=== PATIENT | female | born 1985 | race Caucasian/White ===

== ENCOUNTER → 2020-12-22 12:35 | Outpatient (CLI) | payer OTHER, SELFPAY ==
[2020-12-22 15:57] LABS: Urine N gonorrhoeae NOT DETECTED
[2020-12-22 16:41] LABS: Urine Chlamydia NOT DETECTED
== END ==
PROVIDERS: Visit Provider Obstetrics & Gynecology
DX: Z34.01 Encounter for supervision of normal first pregnancy, first trimester (principal); Z11.3 Encounter for screening for infections with a predominantly sexual mode of transmission; Z3A.10 10 weeks gestation of pregnancy
CPT/HCPCS: 87491; 87591

== ENCOUNTER → 2021-01-08 10:54 | Outpatient (CLI) | payer OTHER, SELFPAY ==
[2021-01-08 11:17] LABS: Add Manual Diff / Slide Review NO; Basophils Absolute Auto 100 /uL (0-100); Eosinophils Absolute Auto 100 /uL (0-450); Eosinophils Percent Auto 1.4 % (2-4); Hematocrit 36.8 % (36-46); Hemoglobin 12.6 g/dL (12.0-16.0); Lymphocytes Absolute Auto 1100 /uL (1100-4500); Lymphocytes Percent Auto 13.8 % (25-40); Mean Corpuscular HGB Conc 34.2 % (30-36); Mean Corpuscular Hemoglobin 30.4 PG (26-34); Mean Corpuscular Volume 88.9 fL (80-100); Monocytes Absolute Auto 400 /uL (0-900); Monocytes Percent Auto 5.3 % (3-14); Neutrophils Absolute Auto 6000 /uL (1500-7000); Neutrophils Percent Auto 78.5 % (50-75); Platelet Count 249 X10^3/uL (150-400); Red Blood Cell Count 4.14 X10^6/uL (4.0-5.2); Red Cell Distribution Width 12.6 % (11.6-14.8); White Blood Cell Count 7.7 X10^3/uL (4.5-11.0)
[2021-01-08 11:27] LABS: Appearance Urine UA CLEAR; Bilirubin Urine UA NEGATIVE (NEGATIVE); Color Urine UA YELLOW; Glucose Urine UA NEGATIVE (Negative); Ketones Urine UA TRACE (NEGATIVE); Leukocyte Esterase Urine UA NEGATIVE (NEGATIVE); Nitrite Urine UA NEGATIVE (Negative); Occult Blood Urine UA NEGATIVE (Negative); Protein Urine UA NEGATIVE (Negative); Specific Gravity Urine UA 1.025 (1.000-1.035); Urobilinogen Urine UA 0.2 E.U./dL (0.2)
[2021-01-08 16:19] LABS: Hepatitis B Surface Antigen NEGATIVE s/c (NEGATIVE); Rubella Antibody IgG 19.3 IU/mL (>15)
[2021-01-08 16:37] LABS: HIV 1 & 2 Ab/Ag 4th Gen Combo NEGATIVE (NEGATIVE); Hep C Virus Ab w/Reflex Quant NEGATIVE s/c (NEGATIVE)
[2021-01-09 05:13] LABS: RPR Screen Non Reactive (Non Reactive)
[2021-01-09 05:36] LABS: Varicella IgG Antibody 813 index (Immune >165)
== END ==
PROVIDERS: Referring Provider Obstetrics & Gynecology; Visit Provider Obstetrics & Gynecology
DX: O09.521 Supervision of elderly multigravida, first trimester (principal); Z36.0 Encounter for antenatal screening for chromosomal anomalies
CPT/HCPCS: 36415; 80055; 81003; 81420; 86787; 86803; 86850; 86900; 86901; 87086; 87389

== ENCOUNTER → 2021-02-16 10:46 | Outpatient (CLI) | payer OTHER, SELFPAY ==
[2021-02-18 20:09] LABS: AFP Value 54.5 ng/mL (.); Gest Age on Col Date 18.3 weeks (.); Insulin Dep Diabetes No (.); OSBR Risk 1IN 9540 (.); Results Report (.); Test Results *Screen Negative* (.)
== END ==
PROVIDERS: Referring Provider Obstetrics & Gynecology; Visit Provider Obstetrics & Gynecology
DX: Z34.03 Encounter for supervision of normal first pregnancy, third trimester (principal); Z36.0 Encounter for antenatal screening for chromosomal anomalies; Z3A.18 18 weeks gestation of pregnancy
CPT/HCPCS: 36415; 82105

== ENCOUNTER → 2021-02-25 07:41 | Outpatient (CLI) | payer OTHER, SELFPAY ==
--- NOTE | 2021-02-25 07:42 | DI.US.S_ITS ---
PROCEDURE: US OB >= 14 WEEKS FETUS INDICATIONS: 20 week FAS OUTSIDE/PRIOR DATING DATA: Last menstrual period (LMP): Not available. LMP-based estimated date of delivery (CLAUDIA): Not available . First dating scan (date and location): 12/23/11, by Dr. Daniel . Estimated date of delivery (CLAUDIA) from first dating scan: 07/12/21 . TECHNIQUE: Real-time scanning was performed of the fetus, with image documentation and biometric measurements. Endovaginal scanning: Not needed COMPARISON: None. FINDINGS: General: A single living intrauterine gestation is present. Presentation: Variable at this time. Placenta: Placental position is posterior , without previa. Amniotic fluid index: 12.8 cm, normal range is 5-24 cm. heart rate: 145 beats per minute. Maternal cervical canal: 3.8 cm long. Normal lower limit is 2.5 cm. biometrics: Biparietal diameter: 4.7 cm, 20 weeks 1 day Head circumference: 17.4 cm, 19 weeks 6 days Abdominal circumference: 15.2 cm, 20 weeks 3 days Femur length: 3.1 cm, 19 weeks 5 days Estimated gestational age from initial scan: 20 weeks 3 days Composite gestational age from present scan: 20 weeks 0 days Estimated weight and percentile: 330 g, 26 percentile Measurement variability for biometric dating: +/- 7 days from 14 weeks to 15 weeks 6 days gestation, +/- 10 days from 16 weeks to 21 weeks 6 days gestation, +/- 2 weeks from 22 weeks to 27 weeks 6 days gestation, +/- 3 weeks for 28 weeks gestation or later. weight reference: 4500 g or EFW >90/95% is considered macrosomia or large for gestational age. EFW <10% is small for gestational age. EFW 5% or less is considered intra-uterine growth restriction. Anatomic survey: Neuro: Ventricles are non-dilated at less than 10 mm. Cisterna magna is normal at 3-11 mm. Cerebellum is normal in size and morphology. Nuchal skin fold: Normal at less than 6 mm between 14-21 weeks gestational age. Face: Nose and lips, facial profile are normal. Spine: No evidence for spina bifida. Heart: 4-chambered heart is present, with normal ventricular outflow tracts. Diaphragm: Diaphragm is intact. Stomach: Left-sided stomach is present. Kidneys: No hydronephrosis. Normal is less than 5 mm in 2nd trimester, less than 7 mm in 3rd trimester. Cord: 3-vessel cord has orthotopic insertion. Bladder: Normal in size. Extremities: All 4 extremities identified. IMPRESSION: Normal survey of anatomy, no anomaly seen. The delivery date is projected to be centered on 07/12/21. Dictated by: Kobe Esparza M.D. on 02/25/2021 at 14:53 Approved by: Kobe Esparza M.D. on 02/25/2021 at 14:56
== END ==
PROVIDERS: PCP Family Medicine; Referring Provider Obstetrics & Gynecology; Visit Provider Obstetrics & Gynecology
DX: Z34.02 Encounter for supervision of normal first pregnancy, second trimester (principal); Z3A.20 20 weeks gestation of pregnancy
CPT/HCPCS: 76811

== ENCOUNTER → 2021-04-13 08:37 | Outpatient (CLI) | payer OTHER, SELFPAY ==
[2021-04-13 10:22] LABS: Hematocrit 34.7 % (36-46); Hemoglobin 11.7 g/dL (12.0-16.0)
[2021-04-13 11:21] LABS: GTT (PREG) 1 Hour PP 50gm Dose 157 mg/dL (76-139)
== END ==
PROVIDERS: PCP Family Medicine; Referring Provider Obstetrics & Gynecology; Visit Provider Obstetrics & Gynecology
DX: Z34.02 Encounter for supervision of normal first pregnancy, second trimester (principal); Z3A.25 25 weeks gestation of pregnancy
CPT/HCPCS: 36415; 82950; 85014; 85018; 86850

== ENCOUNTER → 2021-05-04 07:50 | Outpatient (CLI) | payer OTHER, SELFPAY ==
[2021-05-04 09:25] LABS: Glucose Fasting Gestational 82 mg/dL (76-95)
== END ==
PROVIDERS: PCP Family Medicine; Referring Provider Obstetrics & Gynecology; Visit Provider Obstetrics & Gynecology
DX: O09.522 Supervision of elderly multigravida, second trimester (principal); O99.810 Abnormal glucose complicating pregnancy
CPT/HCPCS: 36415; 82951; 82952

== ENCOUNTER → 2021-06-08 09:24 | Outpatient (CLI) | payer OTHER, SELFPAY ==
--- NOTE | 2021-06-08 09:25 | DI.US.S_ITS ---
PROCEDURE: US OB LIMITED INDICATIONS: GROWTH CHECK OUTSIDE/PRIOR DATING DATA: First dating scan (date and location): 12/22/2020 Estimated date of delivery (CLAUDIA) from first dating scan: 07/12/2021 . TECHNIQUE: Real-time scanning was performed of the fetus, with image documentation and biometric measurements. Endovaginal scanning: No COMPARISON: [facility], OB >= 14 WEEKS FETUS, 02/25/2021, 8:08. FINDINGS: General: A single living intrauterine gestation is present. Presentation: Vertex. Placenta: Placental position is posterior , without previa. Amniotic fluid index: 16.6 cm, normal range is 5-24 cm. heart rate: 116 beats per minute. Maternal cervical canal: 2.9 cm long. Normal lower limit is 2.5 cm. biometrics: Biparietal diameter: 33 weeks 5 days Head circumference: 33 weeks 2 days Abdominal circumference: 33 weeks 4 days Femur length: 33 weeks 6 days Estimated gestational age from initial scan: 35 weeks 1 day Composite gestational age from present scan: 33 weeks 4 days Estimated weight and percentile: 2249 g; 13 percentile Measurement variability for biometric dating: +/- 7 days from 14 weeks to 15 weeks 6 days gestation, +/- 10 days from 16 weeks to 21 weeks 6 days gestation, +/- 2 weeks from 22 weeks to 27 weeks 6 days gestation, +/- 3 weeks for 28 weeks gestation or later. weight reference: 4500 g or EFW >90/95% is considered macrosomia or large for gestational age. EFW <10% is small for gestational age. EFW 5% or less is considered intra-uterine growth restriction. Other: Not applicable. IMPRESSION: Single living IUP redemonstrated and interval growth is lower limits of normal. Dictated by: Patricio PATRICIA Interpreted: Raquel Bob MD on 06/08/2021 at 11:52 Transcribed by: RACHEL on 06/08/2021 at 11:54 Approved by: Raquel Bob M.D. on 06/08/2021 at 15:02
== END ==
PROVIDERS: PCP Family Medicine; Referring Provider Obstetrics & Gynecology; Visit Provider Obstetrics & Gynecology
DX: O99.810 Abnormal glucose complicating pregnancy (principal); Z36.89 Encounter for other specified antenatal screening; Z3A.33 33 weeks gestation of pregnancy
CPT/HCPCS: 76815; 76817

== ENCOUNTER 2021-06-15 20:45 | Emergency (ER) | payer OTHER, SELFPAY ==
[2021-06-15] VITALS (10 sets, daily range): BP systolic 106–117; BP diastolic 61–72; PULSE 79–100; RESP 18–20; TEMP 36.6; O2SAT 98–100
[2021-06-15] MEDS: ONDANSETRON 4 MG/2 ML INJ IV (21:11)
[2021-06-15] MEDS: SODIUM CHLORIDE 0.9% 1,000 ML 1000 ML IV ×2 (21:11→22:31)
[2021-06-15 21:14] LABS: COVID19 -Nasal RAPID Negative (Negative)
[2021-06-15 21:15] LABS: Add Manual Diff / Slide Review NO; Basophils Absolute Auto 0 /uL (0-100); Basophils Percent Auto 0.5 % (0-2); Eosinophils Absolute Auto 0 /uL (0-450); Eosinophils Percent Auto 0.3 % (2-4); Hematocrit 37.2 % (36-46); Hemoglobin 12.7 g/dL (12.0-16.0); Lymphocytes Absolute Auto 600 /uL (1100-4500); Lymphocytes Percent Auto 7.7 % (25-40); Mean Corpuscular HGB Conc 34.1 % (30-36); Mean Corpuscular Hemoglobin 29.9 PG (26-34); Mean Corpuscular Volume 87.6 fL (80-100); Monocytes Absolute Auto 600 /uL (0-900); Monocytes Percent Auto 7.8 % (3-14); Neutrophils Absolute Auto 6600 /uL (1500-7000); Neutrophils Percent Auto 83.7 % (50-75); Platelet Count 222 X10^3/uL (150-400); Red Blood Cell Count 4.25 X10^6/uL (4.0-5.2); Red Cell Distribution Width 12.9 % (11.6-14.8); White Blood Cell Count 7.8 X10^3/uL (4.5-11.0)
[2021-06-15 21:24] LABS: Alanine Aminotransferase 24 IU/L (<35); Albumin 3.9 g/dL (3.5-5.0); Albumin Globulin Ratio 1.3 (1.0-2.8); Alkaline Phosphatase 133 U/L (38-126); Aspartate Aminotransferase 34 IU/L (14-36); BUN Creatinine Ratio 12.1 (6-22); Bilirubin Total 0.5 mg/dL (0.2-1.3); Blood Urea Nitrogen 8 mg/dL (7-17); Calcium 9.4 mg/dL (8.4-10.2); Carbon Dioxide 22 mmol/L (22-32); Chloride 101 mmol/L (98-107); Creatine Kinase 34 U/L (30-135); Estimated Glomerular Filt Rate > 60.0 mL/min (>60); Glucose 101 mg/dL (70-100); HEMOLYSIS < 15 (0-50); Lipase 363 U/L (23-300); Potassium 3.6 mmol/L (3.4-5.1); Sodium 132 mmol/L (137-145); Total Protein 6.9 g/dL (6.3-8.2)
[2021-06-15 21:35] LABS: Troponin I < 0.012 ng/mL (0.01-0.034)
--- NOTE | 2021-06-15 22:15 | ED.CHESTPAIN ---
HPI - Chest Pain General Chief Complaint: Chest Pain Stated Complaint: CHEST PAIN SOB 38WKS Time Seen by Provider: 06/15/21 22:15 Source: patient Mode of arrival: Ambulatory Limitations: no limitations History of Present Illness HPI narrative: 35-year-old woman presents with severe abdominal pain with a squeezing tightness in her chest at 35 weeks gestational age. Baby is active there is no contractions and no vaginal discharge. She denies any fevers. Symptoms of beginning worse over the past 3 days and at this point are unrelenting. She does describe quite a bit of nausea and vomiting with no blood. She has been unable to keep food or medications down. Related Data Home Medications Medication Instructions Recorded Confirmed prenat.vits,vijay,arr-nkfp-wxeaf 1 tab PO DAILY 12/17/20 04/14/21 Previous Rx's Medication Instructions Recorded ondansetron 4 mg disintegrating 4 mg PO .PRN #20 tab 01/19/21 tablet Double Electric breast Pump and #1 ea 04/24/21 Supplies lancets #120 ea 05/12/21 blood sugar diagnostic (Blood #120 ea 05/14/21 Glucose Test) blood-glucose meter (Blood Glucose #1 ea 05/14/21 Monitoring) omeprazole magnesium 20 mg 20 mg PO DAILY #30 cap 06/16/21 capsule,delayed release ondansetron 4 mg disintegrating 4 mg PO Q6H PRN #20 tab 06/16/21 tablet oxycodone-acetaminophen 5 mg-325 1 tab PO Q6H PRN #10 tab 06/16/21 mg tablet Allergies Allergy/AdvReac Type Severity Reaction Status Date / Time codeine Allergy Intermediate Unknown : Verified 12/17/20 14:19 patient to follow up with her mother Review of Systems Review of Systems Narrative: Remainder of complete review of systems is otherwise unremarkable except for that included in the HPI. Patient History Medical History Abnormal Pap smear of cervix (~2013) AMA (advanced maternal age) primigravida 35+ Anxiety and depression (~2003) Laceration of skin of chin Migraine (~2008) Surgical History [place] teeth extracted (~2000) Family History Mother Cancer Breast cancer Ovarian cyst Father Hyperlipidemia Skin cancer Hypertension Grandmother Old age Grandfather Cancer Heart abnormality Grandmother Natural with unknown cause Grandfather Stroke Cancer Family/Other Acute alcoholic intoxication Family history of drug addiction Brother No problems noted. Social History marital status: household members: spouse lives independently: Yes pets and animals: No education level: college occupational status: employed current occupational exposures/hazards: No special balbir needs: No Smoking Status: Never smoker second hand exposure: No alcohol intake: former substance use type: does not use Type(s) of exercise: regular exercise, yoga and additional Smoking Status: Never smoker alcohol intake frequency: other Substance Use Type: does not use Exam Narrative Exam Narrative: General: Healthy appearing, in no acute distress. Able to give a complete and coherent history. Well-nourished well-developed HEENT: Moist mucous membranes, normal sclera with reactive pupils, Neck: No JVD, supple Respiratory: Lungs are clear to auscultation, no wheezing no rales no rhonchi. Full and symmetrical air movement Cardiac: Regular rate and rhythm no murmurs no bruits Abdomen: Gravid, tender in the right upper quadrant no rebound no guarding no flank pain. Neurologic: Grossly neurologically intact with no obvious asymmetries or abnormalities Extremities: No trauma, well perfused Psych: Cooperative, appropriate insight and affect Initial Vital Signs Initial Vital Signs: Vital Signs Temperature 97.8 F 06/15/21 20:47 Pulse Rate 100 H 06/15/21 20:47 Respiratory Rate 20 06/15/21 20:47 Pulse Oximetry 99 06/15/21 20:47 Course Orders Ordered: Discontinued Medications Al Hydrox/Mg Hydrox/Simethicone 20 ml/ Lidocaine HCl 15 ml 0 ml PO NOW ONE Stop: 06/15/21 22:24 Last Admin: 06/15/21 22:31 Dose: 35 ml Documented by: ATAYLOR Hydromorphone HCl (Hydromorphone 0.5 Mg Inj) 0.5 mg IV Q15MIN PRN PRN Reason: Pain, Last Admin: 06/15/21 23:38 Dose: 0.5 mg Documented by: ATAYLOR Sodium Chloride (Normal Saline 0.9%) 1,000 mls @ 1,000 mls/hr IV BOLUS ONE Stop: 06/15/21 21:54 Last Infusion: 06/15/21 22:25 Dose: 0 mls/hr Documented by: Admin: 06/15/21 21:11 Dose: 1,000 mls/hr Documented by: LUIS Sodium Chloride (Normal Saline 0.9%) 1,000 mls @ 1,000 mls/hr IV BOLUS ONE Stop: 06/15/21 23:22 Last Infusion: 06/16/21 00:42 Dose: 0 mls/hr Documented by: Admin: 06/15/21 22:31 Dose: 1,000 mls/hr Documented by: LUIS Ondansetron HCl (Ondansetron 4 Mg/2 Ml Inj) 4 mg IV NOW ONE Stop: 06/15/21 20:56 Last Admin: 06/15/21 21:11 Dose: 4 mg Documented by: LUIS Pantoprazole Sodium (Pantoprazole 40 Mg Vial) 40 mg IV NOW ONE Stop: 06/15/21 22:24 Last Admin: 06/15/21 22:31 Dose: 40 mg Documented by: LUIS Vital Signs Vital signs: Vital Signs - 8 hr 06/15/21 20:47 06/15/21 21:04 06/15/21 21:19 Temperature 97.8 F Pulse Rate 100 H 88 84 Respiratory Rate 20 Blood Pressure 116/72 Pulse Oximetry 99 98 99 06/15/21 21:30 06/15/21 22:00 06/15/21 22:11 Temperature Pulse Rate 85 89 79 Respiratory Rate 18 Blood Pressure 117/71 Pulse Oximetry 99 100 100 06/15/21 22:31 Temperature Pulse Rate 80 Respiratory Rate Blood Pressure Pulse Oximetry 99 MDM - Chest Pain Lab Data Result diagrams: 06/15/21 21:05 06/15/21 21:05 Labs: Lab Results 06/15/21 06/15/21 06/15/21 Range/Units 20:32 21:05 21:05 WBC 7.8 (4.5-11.0) X10^3/uL RBC 4.25 (4.0-5.2) X10^6/uL Hgb 12.7 (12.0-16.0) g/dL Hct 37.2 (36-46) % MCV 87.6 (80-100) fL MCH 29.9 (26-34) PG MCHC 34.1 (30-36) % RDW 12.9 (11.6-14.8) % Plt Count 222 (150-400) X10^3/uL Neut % (Auto) 83.7 H (50-75) % Lymph % (Auto) 7.7 L (25-40) % [place] % (Auto) 7.8 (3-14) % Eos % (Auto) 0.3 L (2-4) % Baso % (Auto) 0.5 (0-2) % Neut # (Auto) 6600 (2274-4368) /uL Lymph # (Auto) 600 L (1937-6948) /uL [place] # (Auto) 600 (0-900) /uL Eos # (Auto) 0 (0-450) /uL Baso # (Auto) 0 (0-100) /uL D-Dimer (<230) ng/mL Sodium 132 L (137-145) mmol/L Potassium 3.6 (3.4-5.1) mmol/L Chloride 101 (98-107) mmol/L Carbon Dioxide 22 (22-32) mmol/L BUN 8 (7-17) mg/dL Creatinine 0.66 (0.52-1.04) mg/dL Estimated GFR > 60.0 (>60) mL/min BUN/Creatinine Ratio 12.1 (6-22) Glucose 101 H (70-100) mg/dL Calcium 9.4 (8.4-10.2) mg/dL Total Bilirubin 0.5 (0.2-1.3) mg/dL AST 34 (14-36) IU/L ALT 24 (<35) IU/L Alkaline Phosphatase 133 H (38-126) U/L Total Creatine Kinase 34 (30-135) U/L CK-MB (CK-2) TNP CK-MB (CK-2) Rel Index TNP Troponin I < 0.012 (0.01-0.034) ng/mL Total Protein 6.9 (6.3-8.2) g/dL Albumin 3.9 (3.5-5.0) g/dL Globulin 3.0 (1.7-4.1) g/dL Albumin/Globulin Ratio 1.3 (1.0-2.8) Lipase 363 H (23-300) U/L Urine RBC (0-5/HPF) Urine WBC (0-5/HPF) Ur Squamous Epith Cells (0-5/HPF) Urine Bacteria (None) Ur Culture Indicated? SARS-CoV-2 (PCR) Negative (Negative) 06/15/21 06/15/21 Range/Units 22:39 23:47 WBC (4.5-11.0) X10^3/uL RBC (4.0-5.2) X10^6/uL Hgb (12.0-16.0) g/dL Hct (36-46) % MCV (80-100) fL MCH (26-34) PG MCHC (30-36) % RDW (11.6-14.8) % Plt Count (150-400) X10^3/uL Neut % (Auto) (50-75) % Lymph % (Auto) (25-40) % [place] % (Auto) (3-14) % Eos % (Auto) (2-4) % Baso % (Auto) (0-2) % Neut # (Auto) (6005-7884) /uL Lymph # (Auto) (7284-2439) /uL [place]ricks # (Auto) (0-900) /uL Eos # (Auto) (0-450) /uL Baso # (Auto) (0-100) /uL D-Dimer 734 H (<230) ng/mL Sodium (137-145) mmol/L Potassium (3.4-5.1) mmol/L Chloride (98-107) mmol/L Carbon Dioxide (22-32) mmol/L BUN (7-17) mg/dL Creatinine (0.52-1.04) mg/dL Estimated GFR (>60) mL/min BUN/Creatinine Ratio (6-22) Glucose (70-100) mg/dL Calcium (8.4-10.2) mg/dL Total Bilirubin (0.2-1.3) mg/dL AST (14-36) IU/L ALT (<35) IU/L Alkaline Phosphatase (38-126) U/L Total Creatine Kinase (30-135) U/L CK-MB (CK-2) CK-MB (CK-2) Rel Index Troponin I (0.01-0.034) ng/mL Total Protein (6.3-8.2) g/dL Albumin (3.5-5.0) g/dL Globulin (1.7-4.1) g/dL Albumin/Globulin Ratio (1.0-2.8) Lipase (23-300) U/L Urine RBC None seen (0-5/HPF) Urine WBC 0-1/hpf (0-5/HPF) Ur Squamous Epith Cells 1-5 /hpf (0-5/HPF) Urine Bacteria Many (>30) H (None) Ur Culture Indicated? Specimen cultured SARS-CoV-2 (PCR) (Negative) Urine Dip Bedside Urine Glucose Negative Bedside Urine Bilirubin + 1 Bedside Urine Ketone +++ 80 Urine Specific [place] 1.030 Bedside Urine Occult Blood - Negative Bedside Urine pH 6.0 Bedside Urine Protein + 30 Bedside Urine Urobilinogen - Negative Bedside Urine Nitrite - Negative Bedside Urine Leukocytes - Negative Esterase MDM Narrative Medical decision making narrative: 35-year-old woman presents with severe abdominal pain with a squeezing tightness in her chest at 35 weeks gestational age. Baby is active there is no contractions and no vaginal discharge. She denies any fevers. Symptoms of beginning worse over the past 3 days and at this point are unrelenting. She does describe quite a bit of nausea and vomiting with no blood. She has been unable to keep food or medications down. Elevated lipase which may be physiologically associated with her . Similarly alkaline phosphatase. D-dimer is within normal limits for 3rd trimester . No evidence of significant infection. Ultrasound does not indicate acute cholecystitis or cholelithiasis. She did feel slightly better with a GI cocktail and half a mg of Dilaudid got her pain to a 2-3 level. She does have Zofran at home however was concerned that was causing constipation so has been using it very sparingly. In the emergency department she received 2 L of fluid, IV Zofran, Protonix, Dilaudid. On re-examination she is feeling significantly better. She will be discharged home with appropriate prescription for omeprazole, refill of her Zofran, instructions to use Tums as needed and try to stick to a liquid/brat diet for the next day or so. Her next OB appointment is in 48 hours. She is safe for home discharge Discharge Plan Departure Patient Disposition: Home Clinical Impression: Qualifiers: Weeks of gestation: 35 weeks Qualified Code(s): Z3A.35 - 35 weeks gestation of Chest pain Qualifiers: Chest pain type: unspecified Qualified Code(s): R07.9 - Chest pain, unspecified Acid reflux Qualifiers: Esophagitis presence: without esophagitis Qualified Code(s): K21.9 - Gastro-esophageal reflux disease without esophagitis Instructions: DI for Pancreatitis, DI for Gastroesophageal Reflux Disease (GERD) Activity Restrictions/Additional Instructions: Thank you for coming in today I suspect that the majority of the pain that your having is from heartburn and irritation to the stomach and esophagus lining. I am going to have you take omeprazole 20 mg daily, this is safe in . You can also use Tums as much as you need (Tums can sometimes cause constipation if you are using a lot of them) For nausea it is okay to use the Zofran and preventing yourself from vomiting to make the heartburn worse does make sense. Make sure that you are keeping yourself as hydrated as possible to avoid constipation. Adding a stool softener may help as well The ultrasound that we did in the emergency room did not show gallbladder problems or gallstones. The lab work did suggest a slight elevation to your pancreatic enzymes however this could be due to . If you find that the pain continues to worsen, we can certainly recheck this. Treatment for it is pain control, hydration and avoiding food for a couple of days while the body heal itself. For severe pain you can use occasional Percocet. This is a narcotic and can be addicting. It also, will cause constipation All prescriptions have been electronically transmitted to [facility] in [place] for you. I hope that you are feeling better and the rest of your is uneventful. Prescriptions: New ondansetron 4 mg tablet,disintegrating 4 mg PO Q6H PRN (Reason: nausea and vomiting) Qty: 20 RF: 0 oxycodone-acetaminophen 5-325 mg tablet 1 tab PO Q6H PRN (Reason: pain) Qty: 10 RF: 0 omeprazole magnesium 20 mg capsule,delayed release(DR/EC) 20 mg PO DAILY Qty: 30 RF: 0 No Action (DME) Double Electric breast Pump and Supplies See Rx Instructions .ROUTE .MEDSUPPLY Qty: 1 RF: 0 (DME) blood-glucose meter [Blood Glucose Monitoring] Kit See Rx Instructions .ROUTE .MEDSUPPLY Qty: 1 RF: 0 (DME) Blood Glucose Test Strip See Rx Instructions .ROUTE .MEDSUPPLY Qty: 120 RF: 3 prenat.vits,vijay,exc-ente-fgzcv Tablet 1 tab PO DAILY RF: 0 ondansetron 4 mg tablet,disintegrating 4 mg PO .PRN Qty: 20 RF: 2 (DME) lancets Misc See Rx Instructions .ROUTE .MEDSUPPLY Qty: 120 RF: 3 Referrals: Kavita Aguilar MD [Primary Care Provider] -
--- NOTE | 2021-06-15 22:26 | DI.US.S_ITS ---
PROCEDURE: US ABDOMEN LIMITED INDICATIONS: RUQ pain. ? gallstones. 35wk TECHNIQUE: Real-time focused scanning was performed of the abdomen, with image documentation. COMPARISON: None. FINDINGS: Liver is normal in size. Multiple small hyperechoic lesions are identified in the liver. Largest cyst in the anterior-medial right hepatic lobe measuring 0.8 x 0.8 x 0.8 centimeters. Gallbladder is sonographically normal. No gallstones. No gallbladder wall thickening. No pericholecystic fluid. No sonographic Lerma sign. Biliary tree is nondilated. Common bile duct measures 3.3 millimeters. Head and body pancreas are sonographically normal. Tail not visualized due to bowel gas and cannot be evaluated. Single intrauterine identified with heart rate of 128 beats per minute. IMPRESSION: 1. Multiple subcentimeter hyperechoic lesions in the liver which may represent hemangiomas. 2. No sonographic evidence of cholelithiasis or cholecystitis. 3. No sonographic evidence of biliary obstruction. Dictated by: Nayla Honeycutt MD, PhD on 06/16/2021 at 7:45 Approved by: Nayla Honeycutt MD, PhD on 06/16/2021 at 7:47
[2021-06-15] MEDS: MAG HYDROX/ALUMINUM/SIMETH SUS 20 ML, LIDOCAINE VISCOUS 2% 15 ML PO (22:31)
[2021-06-15] MEDS: PANTOPRAZOLE 40 MG VIAL IV (22:31)
[2021-06-15 23:06] LABS: D Dimer 734 ng/mL (<230)
[2021-06-15] MEDS: HYDROMORPHONE 0.5 MG INJ IV (23:38)
[2021-06-16] VITALS: BP 96/60; PULSE 84; O2SAT 96
[2021-06-16 00:30] VITALS: BP 93/56; PULSE 87; O2SAT 93
[2021-06-16 01:00] VITALS: PULSE 87; O2SAT 95
[2021-06-16 01:01] VITALS: BP 95/55
[2021-06-16 01:29] LABS: RBC Urine None Seen (0-5/HPF)
[2021-06-16 01:45] LABS: Bacteria Urine Many (>30); Culture Indicated Urine Specimen Cultured; Squamous Epithelial Cell Urine 1-5 /HPF (0-5/HPF); WBC Urine 0-1/HPF (0-5/HPF)
== END 2021-06-16 01:15 | disposition home or self-care (01) ==
PROVIDERS: Emergency Provider Emergency Medicine; PCP Family Medicine
DX: O26.893 Other specified pregnancy related conditions, third trimester (principal); R07.9 Chest pain, unspecified; R11.2 Nausea with vomiting, unspecified; K21.9 Gastro-esophageal reflux disease without esophagitis; Z3A.35 35 weeks gestation of pregnancy; Z20.822 Contact with and (suspected) exposure to COVID-19
CPT/HCPCS: 36415; 76705; 80053; 81003; 81015; 82550; 83690; 84484; 85025; 85379; 87086; 87635; 93005; 96361; 96374; 96375; 99284; C9803; C9113; J1170; J2405

== ENCOUNTER → 2021-06-24 11:54 | Outpatient (CLI) | payer OTHER, SELFPAY ==
[2021-06-25 15:15] LABS: Strep Grp B PCR NEG for Grp B Strep
== END ==
PROVIDERS: PCP Family Medicine; Visit Provider Obstetrics & Gynecology
DX: Z34.03 Encounter for supervision of normal first pregnancy, third trimester (principal); Z3A.36 36 weeks gestation of pregnancy
CPT/HCPCS: 87653

== ENCOUNTER → 2021-06-24 12:46 | Outpatient (CLI) | payer OTHER, SELFPAY ==
[2021-06-24 13:34] LABS: Amylase 146 U/L (30-110); Lipase 405 U/L (23-300)
== END ==
PROVIDERS: PCP Family Medicine; Referring Provider Obstetrics & Gynecology; Visit Provider Obstetrics & Gynecology
DX: O28.8 Other abnormal findings on antenatal screening of mother (principal); R74.8 Abnormal levels of other serum enzymes; Z3A.36 36 weeks gestation of pregnancy
CPT/HCPCS: 36415; 82150; 83690; 87653

== ENCOUNTER 2021-07-06 12:29 | Inpatient (IN) | payer OTHER, SELFPAY ==
[2021-07-06] MEDS: fentaNYL 100 MCG/2 ML INJ IV (13:23)
[2021-07-06 13:36] LABS: Add Manual Diff / Slide Review NO; Basophils Absolute Auto 100 /uL (0-100); Basophils Percent Auto 0.8 % (0-2); Eosinophils Absolute Auto 100 /uL (0-450); Eosinophils Percent Auto 0.9 % (2-4); Hematocrit 37.6 % (36-46); Hemoglobin 12.6 g/dL (12.0-16.0); Lymphocytes Absolute Auto 1400 /uL (1100-4500); Lymphocytes Percent Auto 14.1 % (25-40); Mean Corpuscular HGB Conc 33.6 % (30-36); Mean Corpuscular Hemoglobin 29.2 PG (26-34); Mean Corpuscular Volume 86.9 fL (80-100); Monocytes Absolute Auto 600 /uL (0-900); Monocytes Percent Auto 6.1 % (3-14); Neutrophils Absolute Auto 8000 /uL (1500-7000); Neutrophils Percent Auto 78.1 % (50-75); Platelet Count 277 X10^3/uL (150-400); Red Blood Cell Count 4.32 X10^6/uL (4.0-5.2); White Blood Cell Count 10.2 X10^3/uL (4.5-11.0)
[2021-07-06 14:31] LABS: COVID19 - ADMIT (NP swab/PCR) Negative (Negative)
[2021-07-06] MEDS: LACTATED RINGERS 1,000 ML 100 ML IV ×3 (15:45→22:27)
--- NOTE | 2021-07-06 19:40 | PM.OBHP.1 ---
OB HPI Date/Time Date of admission: 07/06/21 Date Patient Seen: 07/06/21 Time Patient Seen: 19:40 History of Present Condition Chief complaint: : 1 Para: 0 Estimated Date of Delivery: 07/18/21 Estimated Gestational Age (weeks): 38+2 Narrative: Zakiya Galindo is a 35 year old female 1 para 0 at 38-,2/7 weeks gestation with spontaneous rupture of membranes at 10:30 a.m. with clear amniotic fluid. History of Present care: good care, initiated at week # (10), number of visits and pounds weight gain (47) Dating criteria: LMP confirmed by 1st trimester US Ultrasounds: normal 1st trimester US and normal mid trimester US Obstetrical complications: none Medical complications: none Preadmission Labs Blood type: A (-) negative -: Antibody screen: positive (Anti-D), GBS status: negative, HBsAG: negative, HIV: negative and RPR/VDLR: negative -: Chlamydia screen: not detected and Gonorrhea screen: not detected -: Rubella: immune and Varicella: immune HCT: 37.6 HCAB: negative PAP: Normal (2019) Cell-free DNA: Normal male Urine: Negative 1 hr GTT: 157 Fasting blood glucose: 82 Evaluation Evaluation Baseline heart rate: 115 Variability: Moderate (11-25) monitor accelerations: Present Contraction Frequency (minutes): 3 Uterine Contraction Intensity: Strong/Firm Status: Category l Cervical dilation (cm): 9 Cervical effacement (%): 100 station: 0 PFSH Medical History Abnormal Pap smear of cervix (~2013) AMA (advanced maternal age) primigravida 35+ Anxiety and depression (~2003) Laceration of skin of chin Migraine (~2008) Surgical History [place] teeth extracted (~2000) Family History Mother Cancer Breast cancer Ovarian cyst Father Hyperlipidemia Skin cancer Hypertension Grandmother Old age Grandfather Cancer Heart abnormality Grandmother Natural with unknown cause Grandfather Stroke Cancer Family/Other Acute alcoholic intoxication Family history of drug addiction Brother No problems noted. Social History marital status: household members: spouse lives independently: Yes pets and animals: No education level: college occupational status: employed current occupational exposures/hazards: No special balbir needs: No Smoking Status: Never smoker second hand exposure: No alcohol intake: former substance use type: does not use Type(s) of exercise: regular exercise, yoga and additional Meds Home Medications and Allergies Home Medications Medication Instructions Recorded Confirmed Type prenat.vits,vijay,vio-ecbl-kvnmw 1 tab PO DAILY 12/17/20 04/14/21 History ondansetron 4 mg disintegrating 4 mg PO .PRN #20 tab 01/19/21 04/14/21 Rx tablet Double Electric breast Pump and #1 ea 04/24/21 Rx Supplies lancets #120 ea 05/12/21 05/12/21 Rx blood sugar diagnostic (Blood #120 ea 05/14/21 Rx Glucose Test) blood-glucose meter (Blood Glucose #1 ea 05/14/21 Rx Monitoring) omeprazole magnesium 20 mg 20 mg PO DAILY #30 cap 06/16/21 Rx capsule,delayed release ondansetron 4 mg disintegrating 4 mg PO Q6H PRN #20 tab 06/16/21 Rx tablet oxycodone-acetaminophen 5 mg-325 1 tab PO Q6H PRN #10 tab 06/16/21 Rx mg tablet Allergies Allergy/AdvReac Type Severity Reaction Status Date / Time codeine Allergy Intermediate Unknown : Verified 12/17/20 14:19 patient to follow up with her mother Exam Narrative Exam Narrative: Generally: Patient comfortable with epidural in place Fundal height: 39 cm Estimated weight 7 lb Extremities: No edema, 1+ DTRs Objective Labs Result Diagrams: 07/06/21 13:27 Labs: Laboratory Results - last 24 hr 07/06/21 07/06/21 07/06/21 13:27 13:27 13:27 WBC 10.2 RBC 4.32 Hgb 12.6 Hct 37.6 MCV 86.9 MCH 29.2 MCHC 33.6 RDW 13.0 Plt Count 277 Neut % (Auto) 78.1 H Lymph % (Auto) 14.1 L [place] % (Auto) 6.1 Eos % (Auto) 0.9 L Baso % (Auto) 0.8 Neut # (Auto) 8000 H Lymph # (Auto) 1400 [place] # (Auto) 600 Eos # (Auto) 100 Baso # (Auto) 100 SARS-CoV-2 (PCR) Blood Type A Negative Antibody Screen Positive Antibody Identification Anti-D Cancelled 07/06/21 13:35 WBC RBC Hgb Hct MCV MCH MCHC RDW Plt Count Neut % (Auto) Lymph % (Auto) [place] % (Auto) Eos % (Auto) Baso % (Auto) Neut # (Auto) Lymph # (Auto) [place] # (Auto) Eos # (Auto) Baso # (Auto) SARS-CoV-2 (PCR) Negative Blood Type Antibody Screen Antibody Identification Assessment and Plan Assessment and Plan Assessment and Plan narrative: Assessment: 35-year-old 1 para 0 at 38-,2/7 weeks gestation status post spontaneous rupture of membranes at home at 10:30 a.m. this morning Progressing in active labor Comfortable with epidural Plan: Expected management to spontaneous vaginal delivery Side signed position changes every 15 minute Time Spent with Patient Total time spent with greater than 50% in coordination of care (as documented) at patient's floor/unit and/or counseling patient:: 15-24 minutes
[2021-07-06] MEDS: ONDANSETRON 4 MG/2 ML INJ IV ×2 (20:55→23:58)
--- NOTE | 2021-07-06 21:27 | PM.OBPNLAB ---
Date/Time Date Patient Seen: 07/06/21 Time Patient Seen: 21:28 Pain Control Pain control: epidural Pelvic Exam Dilation (cm): 10 Effacement (%): 100 station: 0 Amniotic membrane status: Ruptured Contractions Monitor mode: External Contraction frequency (min): 3 Contraction duration (min): 1 Contraction intensity: Strong/Firm Status status: Category ll Heart Rate Baseline: 105 Monitor Accelerations: Present Monitor Decelerations: Prolonged (x 5 min) Monitor Variability: Minimal Assessment and Plan Plan: Comments: Discussed the occiput posterior presentation and the possibility of 2 more hours of pushing. Decision made to proceed to primary low-transverse section due to intolerance of labor. The risks, benefits, and alternatives to the procedure were explained to the patient. The risks including bleeding, infection, injury to the bowel, bladder, or ureters. She understands these risks and agrees to proceed. A full par Q was held and consent form was signed.
--- NOTE | 2021-07-06 21:29 | PM.PREOP ---
Pre-operative Note COVID-19 COVID-19 status: Negative Result date/Date tested (Pos, Neg/Pending): 07/06/21 Interval Note History & Physical reviewed/Exam performed by Physician: Yes Changes to H&P: No H&P completed within 30 days and has changed as indicated here:: 07/06/21
--- NOTE | 2021-07-06 22:10 | SUR.OPER ---
Supine on Padded OR bed, head on pillow, safety belt at thigh, arms secured on padded arm boards at <90 degrees abduction. Bump under right buttock. Legs uncrossed with pillow under knees, gel pad to heels, tape over blanket to lower legs.
--- NOTE | 2021-07-06 22:23 | SUR.OPER ---
VIABLE MALE INFANT DELIVERED AT 2214. PLACENTA AND CORD BLOOD TO OB WITH RN.
[2021-07-06] MEDS: CEFAZOLIN 1 GM VIAL 2 GM IV (22:26)
--- NOTE | 2021-07-06 22:58 | P.OP_ITS ---
Operative Date/Time/Diagnoses Date of procedure: 07/06/21 Time of procedure: 22:58 Pre-op diagnosis: intolerance of labor Direct Occiput posterior Post-op diagnosis: same Procedure & Clinicians Procedure: Primary low-transverse section Same procedure as scheduled: Yes Indications: intolerance of labor Direct occiput posterior presentation Surgeon: Columba Yates Click Yes if Unassisted: Yes Anesthesia Type: Epidural (With Duramorph) Operative Notes Findings: Live male infant in the direct occiput posterior presentation Edematous uterus and cervix Normal uterus tubes and ovaries Closure Type: primary Specimen(s): cord blood and placenta Intraoperative meds administered: Duramorph, Ketorolac and Pitocin Applied: Catheter (To continuous drainage) Estimated Blood Loss (mL): 500 Blood products transfused: none Procedure in detail: After informed consent was obtained, the patient was taken to the operating room where she was placed in the dorsal supine position with a leftward tilt. She was prepped and draped in the usual sterile fashion. A timeout was performed. After epiduralanalgesia was found to be adequate, a Pfannenstiel skin incision was made 2 fingerbreadths above the pubic symphysis and carried through to the underlying layer fascia. The fascia was nicked in the midline, and the incision extended bilaterally with the Giraldo scissors. The superior aspect of the fascial incision was grasped with a [place] clamps, elevated, and the underlying rectus muscles dissected off sharply and bluntly. Attention was then turned to the inferior aspect of this incision which in a similar fashion was grasped with a [place] clamps, elevated, and the underlying rectus muscles dissected off sharply and bluntly. The rectus muscles were in the midline. The peritoneum was identified, grasped between 2 hemostats, and entered sharply with the Metzenbaum scissors. This incision was extended superiorly and inferiorly with good visualization of the bladder. The bladder blade was inserted. The vesicouterine peritoneum was identified, grasped with the pickup, and entered sharply with the Metzenbaum scissors. This incision was extended bilaterally, and the bladder flap was created digitally. The bladder blade was reinserted. The lower uterine segment was incised in a transverse fashion with the scalpel. Upon entering the amniotic sac there was a moderate amount of meconium-stained amniotic fluid. The infant's head was delivered without difficulty. The nose and mouth were suctioned with bulb suction. The remainder of the body delivered without difficulty. The baby was wrapped in a warm blanket. cord was double clamped and cut after 1 minute. The was handed off to waiting RN and RT. The placenta was delivered manually. The uterus was cleared of all clots and debris. The uterine incision was repaired with #1 chromic in a running interlocking fashion, and a second layer the same suture was used for an imbricating layer. Hemostasis was achieved. The tubes and ovaries were examined and were found to be normal. The gutters were cleared of all clots and debris. The bladder flap was reapproximated using 2-0 Vicryl in a running fashion. The parietal peritoneum was closed using 2-0 Vicryl in a running fashion. The fascia was reapproximated using 0 Vicryl in a running fashion. The subcutaneous layer was copiously irri gated with warm normal saline. 6 simple interrupted sutures of 3-0 Vicryl were placed to reapproximate the subcutaneous layer. The skin was closed with 4-0 Monocrylin a subcuticular fashion. Steri-Strips were placed. An Aquacel dressing was placed. The uterus was expressed of a small amount of old blood. Sponge, lap, and instrument counts were correct ?-2. The patient tolerated the procedure well, and was taken to PACU in stable condition. Complications: none [place] Baby 1: Infant Gender: Male Presentation: vertex Position: Occiput Posterior Placental Delivery Description: Manual Removal Cord Vessel Description: 3 Vessels and Clamped/Cut score (1 min): 9 score (5 min): 9 weight: 7 lb 5 oz Post-operative Condition: stable Disposition: PACU Aftercare: routine postop
[2021-07-06 22:59] VITALS: BP 97/64; PULSE 88; RESP 11; TEMP 37.2; O2SAT 97
[2021-07-06 23:04] VITALS: BP 98/66; PULSE 91; RESP 8; O2SAT 96
[2021-07-06 23:09] VITALS: BP 103/61; PULSE 85; RESP 9; O2SAT 97
[2021-07-06] MEDS: OXYCODONE/ACETAMINOPHEN 5/325 TABLET 1 TAB PO (23:11)
[2021-07-06 23:16] VITALS: BP 82/60; PULSE 94; RESP 14; O2SAT 98
--- NOTE | 2021-07-06 23:24 | SUR.PHASEI ---
Pain worsening, patient decided to accept IV pain med while waiting for PO to become effective. Medicated/Dr. Garcia. States that the pain is 'deep' and 'stabbing' Tolerating PO intake well
[2021-07-06 23:29] VITALS: BP 103/70; PULSE 86; RESP 10; O2SAT 99
--- NOTE | 2021-07-06 23:34 | SUR.PHASEI ---
Nausea, no emesis, queeze-ease given. She states that it is helping to relieve the nausea
[2021-07-06 23:39] VITALS: BP 104/61; PULSE 88; RESP 11; O2SAT 93
--- NOTE | 2021-07-06 23:46 | SUR.PHASEI ---
Asked if she could sleep. Denies pain - states it is just 'a little pinching, but it doesn't hurt.
[2021-07-07] VITALS: BP 117/67; PULSE 86; RESP 14; TEMP 37.3; O2SAT 97
--- NOTE | 2021-07-07 00:12 | SUR.PHASEI ---
0002 to center, spouse and baby in the room, report given, Care assumed by staff. Patient awake, oriented, tired, appreciative of care. Medicated for nausea prior to transfer - no emeisis
[2021-07-07 00:36] VITALS: BP 106/65
[2021-07-07] MEDS: OXYCODONE/ACETAMINOPHEN 5/325 TABLET 1 TAB PO ×4 (02:23→22:27)
[2021-07-07 02:51] VITALS: BP 111/61; PULSE 73; RESP 16; TEMP 36.1
[2021-07-07 03:51] VITALS: BP 105/59; PULSE 72; RESP 16; TEMP 36.7
[2021-07-07] MEDS: KETOROLAC 30 MG/ML VIAL IV ×4 (06:16→19:16)
[2021-07-07 06:56] LABS: Hematocrit 29.9 % (36-46); Hemoglobin 9.9 g/dL (12.0-16.0)
[2021-07-07] MEDS: DOCUSATE 100 MG CAPSULE 200 MG PO ×2 (09:18→21:25)
[2021-07-07] MEDS: PRENATAL VIT,CALC/IRON/FOLIC 1 TABLET 1 TAB PO (09:19)
--- NOTE | 2021-07-07 16:20 | PM.OBPN.1 ---
Subjective - OB Subjective Patient comments: no complaints, pain well controlled and flatus present [place] baby status: doing well [place] feeding status: exclusively breast feeding Narrative: Patient voiding spontaneously, has passed flatus, pain well controlled, tolerating regular diet Date Patient Seen: 07/07/21 Time Patient Seen: 16:21 Exam Vital Signs (past 8 hours): Oxygen Delivery Method Room Air Const General: cooperative and comfortable Nutritional Appearance: average body habitus Orientation: alert and oriented x3 HENMT Head: normal to inspection Eyes General: appearance normal, both eyes and all related structures Conjunctivae: conjunctivae normal Sclera: sclerae normal EOM: EOM intact bilaterally Neck Neck: normal visual inspection Resp Effort & Inspection: normal respiratory effort and able to speak in complete sentences Auscultation: clear to auscultation bilaterally Cardio Rate: regular rate Rhythm: regular rhythm Heart Sounds: S1 normal, S2 normal and no murmurs GI Inspection: normal to inspection, distended (Mild) and incision (Dressing clean, dry, and intact) Palpation: soft, no hepatosplenomegaly and mass (Fundus U-4, NT, firm) Auscultation: hypoactive bowel sounds Extrem General: No calf tenderness Psych Appearance: grossly normal Mental Status: mental status grossly normal Speech and Movement: speech and movement normal Mood: congruent mood Affect: normal affect Attitude: cooperative Thought Process: normal Thought Content: normal Judgment: judgment good Objective Labs Result Diagrams: 07/07/21 06:35 Labs: Laboratory Results - last 24 hr 07/07/21 06:35 Hgb 9.9 L Hct 29.9 L Assessment & Plan Plan day: 1 plan OB: routine postop care Comments: Anticipate discharge 07/08/2021 Time Spent With Patient Time: Total time spent is greater than 50% in coordination of care (as documented) at patient's floor/unit and/or counseling patient: Time with patient: less than 15 minutes
[2021-07-07] MEDS: ACETAMINOPHEN 325 MG TABLET 650 MG PO (17:52)
[2021-07-07] MEDS: LANOLIN OINT 7 GM 1 APPLIC TOP (21:24)
[2021-07-07] MEDS: OXYCODONE IR 5 MG TABLET PO (21:26)
[2021-07-08] MEDS: ACETAMINOPHEN 325 MG TABLET 650 MG PO ×3 (00:24→13:54)
[2021-07-08] MEDS: IBUPROFEN 600 MG TABLET PO ×3 (00:24→13:55)
[2021-07-08] MEDS: OXYCODONE IR 5 MG TABLET PO ×3 (02:15→13:56)
[2021-07-08] MEDS: DOCUSATE 100 MG CAPSULE 200 MG PO (07:49)
[2021-07-08] MEDS: PRENATAL VIT,CALC/IRON/FOLIC 1 TABLET 1 TAB PO (07:49)
--- NOTE | 2021-07-08 19:37 | PM.OBDS.1 ---
Discharge Providers Provider Date of admission: 07/06/21 12:29 Discharge Date: 07/08/21 Primary care physician: Kavita Aguilar MD Consults: 07/06/21 23:48 Consult to Financial Accounting Manager Routine Comment: Discharge provider: Jaciel Blue MD Summary Hospital Course Date Patient Seen: 07/08/21 Time Patient Seen: 12:50 Diagnoses: Intrauterine gestation, [place], term, vertex Persistent occiput posterior position intolerance of labor in the 2nd stage Hospital Course: The patient was admitted with spontaneous rupture membranes at 10:30 a.m. on the morning of 07/06/2021 and by that evening had progressed spontaneously into the 2nd stage of labor. During her pushing however she experienced a prolonged episode of bradycardia and had repetitive deep variables while the infant was determined to be in the persistent her occiput posterior position. After discussion with the patient the decision was made to proceed to primary section for indications and the patient underwent an uneventful primary delivery by low transverse cervical incision on the evening of 07/06/2021. Her post operative course has been unremarkable with prompt return of bowel and bladder function. She is tolerating regular diet, is ambulating independently, and her pain is well controlled with oral medications. She will be discharged at this time to home with medications to include Percocet 1 p.o. q.4 hours as needed pain dispense 20 with no refills, ibuprofen 600 mg p.o. q.6 hours as needed pain dispense 60 with 3 refills, and Colace 100 mg p.o. b.i.d. times 30 days. The patient has not made a decision about the method of contraception. Prior to discharge the patient was counseled regarding precautionary symptoms, limitations activity, medications, plan for follow-up. She will be scheduled for follow-up appointment in the office in 1 week for incision check and dressing removal. Peripartum Data Delivery Method: Section Episiotomy description: None complications: none 1: Gender: Male Disposition of : home Discharge Diagnosis (1) , delivered: Status: Acute (2) Occipitoposterior position, delivered, current hospitalization: Status: Acute (3) intolerance to labor, delivered, current hospitalization: Status: Acute Status at Discharge Cognitive/behavioral status at discharge: oriented and at baseline, oriented Functional status at discharge: independent ambulation Overall status at discharge: patient is progressing back to baseline Time Spent with Patient Time attestation: Total time spent providing and/or coordinating discharge services: Time spent: Less than 30 minutes Objective Labs Result Diagrams: 07/07/21 06:35 Exam Vital Signs (past 8 hours): Oxygen Delivery Method Room Air Const General: cooperative and comfortable Nutritional Appearance: average body habitus Orientation: alert and oriented x3 HENMT Head: normal to inspection Eyes General: appearance normal, both eyes and all related structures Neck Neck: normal visual inspection Resp Effort & Inspection: normal respiratory effort and able to speak in complete sentences Auscultation: clear to auscultation bilaterally Cardio Rate: regular rate Rhythm: regular rhythm Heart Sounds: S1 normal, S2 normal and no murmurs GI Inspection: normal to inspection, distended (Mild) and incision ( dressing dry and intact) Palpation: soft, no hepatosplenomegaly and tender ( mild, diffuse lower abdomen) Auscultation: hypoactive bowel sounds Extrem General: No calf tenderness Psych Appearance: grossly normal Mental Status: mental status grossly normal Speech and Movement: speech and movement normal Mood: congruent mood Affect: normal affect Attitude: cooperative Thought Process: normal Thought Content: normal Judgment: judgment good Discharge Plan Discharge Plan Patient Disposition: Home Provider Discharge Comment: See written instructions. Your follow-up appointment will be in 1 week and I look forward to seeing you then. Discharge orders & Medications Prescriptions: New oxycodone-acetaminophen [Percocet] 5-325 mg tablet 1 tab PO Q4H PRN (Reason: pain) Qty: 20 RF: 0 docusate sodium [Colace] 100 mg capsule 100 mg PO BID 30 Days Qty: 60 RF: 0 ibuprofen 600 mg tablet 600 mg PO Q6H PRN (Reason: fever or pain) Qty: 60 RF: 3 Continued (DME) Double Electric breast Pump and Supplies See Rx Instructions .ROUTE .MEDSUPPLY Qty: 1 RF: 0 (DME) blood-glucose meter [Blood Glucose Monitoring] Kit See Rx Instructions .ROUTE .MEDSUPPLY Qty: 1 RF: 0 (DME) Blood Glucose Test Strip See Rx Instructions .ROUTE .MEDSUPPLY Qty: 120 RF: 3 prenat.vits,vijay,[id number] Tablet 1 tab PO DAILY RF: 0 ondansetron 4 mg tablet,disintegrating 4 mg PO .PRN Qty: 20 RF: 2 (DME) lancets Misc See Rx Instructions .ROUTE .MEDSUPPLY Qty: 120 RF: 3 ondansetron 4 mg tablet,disintegrating 4 mg PO Q6H PRN (Reason: nausea and vomiting) Qty: 20 RF: 0 oxycodone-acetaminophen 5-325 mg tablet 1 tab PO Q6H PRN (Reason: pain) Qty: 10 RF: 0 omeprazole magnesium 20 mg capsule,delayed release(DR/EC) 20 mg PO DAILY Qty: 30 RF: 0 Follow up/Referrals: Kavita Aguilar MD [Primary Care Provider] - Jaciel Blue MD [Physician] - 1 Week (Please follow up with Dr. Blue on July 14 @ 10:00AM for an aquacel dressing removal. ) Discharge Health Status Multidrug resistant organism: No MDRO Diet/Activity/Treatments Diet: Diet as Tolerated Skin/Wound/Dressing Care Report to your healthcare provider any signs of infection, such as:: chills, fever, increased pain, unusual drainage and unusual redness Dressing: Keep dressing on until your follow-up appointment in 1 week Visit Report/Discharge Packet Instructions: DI for , DI for and Nipple Soreness, DI for Prescription Opioid Use Discharge Data Primary Care Provider: Kavita Aguilar
== END 2021-07-08 14:22 | disposition home or self-care (01) | DRG 788 ==
PROVIDERS: Obstetrics & Gynecology; Admitting Provider Obstetrics & Gynecology; PCP Family Medicine; Referring Provider Obstetrics & Gynecology; Visit Provider Obstetrics & Gynecology
PROC: 10D00Z1 Extraction of Products of Conception, Low, Open Approach (ICD-10-PCS; CPT 59514; principal; 2021-07-06 22:00)
DX: O64.0XX0 Obstructed labor due to incomplete rotation of fetal head, not applicable or unspecified (principal); O76 Abnormality in fetal heart rate and rhythm complicating labor and delivery; Z3A.38 38 weeks gestation of pregnancy; Z37.0 Single live birth
CPT/HCPCS: 01967; 01968; 36415; 59050; 59510; 59514; 85014; 85018; 85025; 86850; 86870; 86900; 86901; 87635; C9803; G0379; J0690; J1170; J1885; J2250; J2274; J2405; J2590; J3010

== ENCOUNTER → 2022-03-24 09:46 | Outpatient (CLI) | payer OTHER, SELFPAY ==
--- NOTE | 2022-03-24 09:47 | DI.US.S_ITS ---
PROCEDURE: US OB <= 14 WEEKS FETUS INDICATIONS: DATES OUTSIDE/PRIOR DATING DATA: Last menstrual period (LMP): 01/29/2022 LMP-based estimated date of delivery (CLAUDIA): 11/05/2022 First dating scan (date and location): 03/24/2022 at [facility] Estimated date of delivery (CLAUDIA) from first dating scan: 11/01/2022 TECHNIQUE: Real-time scanning was performed of the fetus and maternal pelvic organs, with image documentation. Endovaginal scanning was also performed to better visualize the fetus and maternal ovaries. COMPARISON: [facility], US, US OB <= 14 WEEKS FETUS, 12/22/2020, 12:23. FINDINGS: Embryo: Intrauterine gestational sac is seen with yolk sac and pole. The crown-rump length is 1.8 cm, compatible with an estimated gestational age of 8 weeks 2 days. Heart rate: 160 beats per minute Maternal organs: Left ovary is not seen. The right ovary is unremarkable. IMPRESSION: Single live intrauterine with estimated gestational age of 8 weeks 2 days, resulting in an ultrasound CLAUDIA of 11/01/2022. We strive to produce accurate, complete, and clear reports of imaging services. To assist us in improving patient care, this report was composed using standard report templates and voice recognition software. Therefore, it may contain abnormal punctuation, insertions and/or omissions. Occasional wrong-word or sound-alike substitutions may occur. Though we review the report and make efforts to correct it, we do recommend that the report be read carefully in proper context to recognize any text inaccuracies. Dictated by: Joseph Mcgregor M.D. on 03/24/2022 at 13:43 Approved by: Joseph Mcgregor M.D. on 03/24/2022 at 13:45
[2022-03-24 10:15] LABS: Add Manual Diff / Slide Review NO; Basophils Absolute Auto 100 /uL (0-100); Basophils Percent Auto 0.9 % (0-2); Eosinophils Absolute Auto 0 /uL (0-450); Eosinophils Percent Auto 0.4 % (2-4); Hematocrit 37.9 % (36-46); Hemoglobin 12.8 g/dL (12.0-16.0); Lymphocytes Absolute Auto 1800 /uL (1100-4500); Lymphocytes Percent Auto 22.1 % (25-40); Mean Corpuscular HGB Conc 33.8 % (30-36); Mean Corpuscular Hemoglobin 29.3 PG (26-34); Mean Corpuscular Volume 86.7 fL (80-100); Monocytes Absolute Auto 600 /uL (0-900); Monocytes Percent Auto 7.1 % (3-14); Neutrophils Absolute Auto 5500 /uL (1500-7000); Neutrophils Percent Auto 69.5 % (50-75); Platelet Count 274 X10^3/uL (150-400); Red Blood Cell Count 4.38 X10^6/uL (4.0-5.2); Red Cell Distribution Width 13.1 % (11.6-14.8); White Blood Cell Count 7.9 X10^3/uL (4.5-11.0)
[2022-03-24 10:32] LABS: Appearance Urine UA CLEAR; Bilirubin Urine UA NEGATIVE (NEGATIVE); Color Urine UA YELLOW; Glucose Urine UA TRACE g/dL (Negative); Ketones Urine UA NEGATIVE (NEGATIVE); Leukocyte Esterase Urine UA TRACE (NEGATIVE); Nitrite Urine UA NEGATIVE (Negative); Occult Blood Urine UA NEGATIVE (Negative); Protein Urine UA NEGATIVE (Negative); Specific Gravity Urine UA 1.015 (1.000-1.035); Urobilinogen Urine UA 0.2 E.U./dL (0.2)
[2022-03-24 11:27] LABS: Bacteria Urine Moderate (10-30); Mucus Urine 2+ (Negative); RBC Urine 1-5/HPF (0-5/HPF); Squamous Epithelial Cell Urine 1-5 /HPF (0-5/HPF); WBC Urine 1-5/HPF (0-5/HPF)
[2022-03-25 07:09] LABS: RPR Screen Non Reactive (Non Reactive); Varicella IgG Antibody 648 index (Immune >165)
[2022-03-25 15:47] LABS: Hepatitis B Surface Antigen NEGATIVE s/c (NEGATIVE); Rubella Antibody IgG 17.7 IU/mL (>15)
[2022-03-25 16:03] LABS: HIV 1 & 2 Ab/Ag 4th Gen Combo NEGATIVE (NEGATIVE); Hep C Virus Ab w/Reflex Quant NEGATIVE s/c (NEGATIVE)
== END ==
PROVIDERS: PCP Family Medicine; Referring Provider Obstetrics & Gynecology; Visit Provider Obstetrics & Gynecology
DX: Z34.81 Encounter for supervision of other normal pregnancy, first trimester (principal); Z3A.08 8 weeks gestation of pregnancy
CPT/HCPCS: 36415; 76801; 76817; 80055; 81003; 81015; 86787; 86803; 86850; 86900; 86901; 87086; 87389

== ENCOUNTER → 2022-04-23 12:20 | Outpatient (CLI) | payer OTHER, SELFPAY ==
[2022-04-23 12:31] LABS: Specimen Label KIT
== END ==
PROVIDERS: Obstetrics & Gynecology; PCP Family Medicine; Referring Provider Obstetrics & Gynecology; Visit Provider Obstetrics & Gynecology
DX: O09.511 Supervision of elderly primigravida, first trimester (principal)
CPT/HCPCS: 36415

== ENCOUNTER → 2022-06-15 09:44 | Outpatient (CLI) | payer OTHER, SELFPAY ==
--- NOTE | 2022-06-15 09:45 | DI.US.S_ITS ---
PROCEDURE: US OB >= 14 WEEKS FETUS INDICATIONS: ANATOMY OUTSIDE/PRIOR DATING DATA: Last menstrual period (LMP): 01/29/2022 LMP-based estimated date of delivery (CLAUDIA): 11/05/2022 First dating scan (date and location): 03/24/2022 Estimated date of delivery (CLAUDIA) from first dating scan: 11/01/2022 The calculations are made using the study generated CLAUDIA of 11/01/2022. TECHNIQUE: Real-time scanning was performed of the fetus, with image documentation and biometric measurements. Endovaginal scanning: None indicated. COMPARISON: [facility], OB >= 14 WEEKS FETUS, 02/25/2021, 8:08. FINDINGS: General: A single living intrauterine gestation is present. Presentation: Breech. Placenta: Placental position is posterior, without previa. Amniotic fluid index: 12.5 cm, normal range is 5-24 cm. Single deepest vertical pocket is 4.3 cm. heart rate: 158 beats per minute. Maternal cervical canal: 3.1 cm long. Normal lower limit is 2.5 cm. biometrics: Biparietal diameter: 4.6 cm, 20 weeks, 0 day. Head circumference: 17.7 cm, 20 weeks, 1 day. Abdominal circumference: 15.3 cm, 20 weeks, 3 days. Femur length: 3.0 cm, 19 weeks, 2 days. Clinically estimated gestational age: 20 weeks, 1 day. Composite gestational age from present scan: 20 weeks, 0 day. Estimated weight and percentile: 322 g, 34%. Anatomic survey: Neuro: Ventricles are non-dilated at less than 10 mm. Cisterna magna is normal at 3-11 mm. Cerebellum is normal in size and morphology. Nuchal skin fold: Normal at less than 6 mm between 14-21 weeks gestational age. Face: Nose and lips, facial profile are normal. Spine: No evidence for spina bifida. Heart: 4-chambered heart is present, with normal ventricular outflow tracts. Diaphragm: Diaphragm is intact. Stomach: Left-sided stomach is present. Kidneys: No hydronephrosis. Normal is less than 5 mm in 2nd trimester, less than 7 mm in 3rd trimester. Cord: 3-vessel cord has orthotopic insertion. Bladder: Normal in size. Extremities: All 4 extremities identified. IMPRESSION: 1. Single live intrauterine gestation with fetus in breech presentation. Normal amount of amniotic fluid. heart rate is 158 beats per minute. Estimated weight is at 34%. 2. Normal anatomic survey. We strive to produce accurate, complete, and clear reports of imaging services. To assist us in improving patient care, this report was composed using standard report templates and voice recognition software. Therefore, it may contain abnormal punctuation, insertions and/or omissions. Occasional wrong-word or sound-alike substitutions may occur. Though we review the report and make efforts to correct it, we do recommend that the report be read carefully in proper context to recognize any text inaccuracies. Dictated by: Toi Diamond M.D. on 06/15/2022 at 12:02 Approved by: Toi Diamond M.D. on 06/15/2022 at 12:09
[2022-06-16 20:35] LABS: AFP Value 54.5 ng/mL (.); Gest Age on Col Date 19.6 weeks (.); Insulin Dep Diabetes No (.); OSBR Risk 1IN 10000 (.); Results Report (.); Test Results *Screen Negative* (.)
== END ==
PROVIDERS: PCP Family Medicine; Referring Provider Obstetrics & Gynecology; Visit Provider Obstetrics & Gynecology
DX: Z34.82 Encounter for supervision of other normal pregnancy, second trimester (principal); Z3A.20 20 weeks gestation of pregnancy
CPT/HCPCS: 36415; 76811; 82105

== ENCOUNTER → 2022-08-18 09:44 | Outpatient (CLI) | payer OTHER, SELFPAY ==
[2022-08-18 12:03] LABS: Hematocrit 33.5 % (36-46); Hemoglobin 11.4 g/dL (12.0-16.0)
[2022-08-18 12:44] LABS: GTT (PREG) 1 Hour PP 50gm Dose 161 mg/dL (76-139)
== END ==
PROVIDERS: PCP Family Medicine; Referring Provider Obstetrics & Gynecology; Visit Provider Obstetrics & Gynecology
DX: O26.899 Other specified pregnancy related conditions, unspecified trimester (principal); Z3A.26 26 weeks gestation of pregnancy; Z67.91 Unspecified blood type, Rh negative
CPT/HCPCS: 82950; 85014; 85018

== ENCOUNTER → 2022-08-24 09:57 | Outpatient (CLI) | payer OTHER, SELFPAY ==
[2022-08-24 13:09] LABS: Glucose Fasting Gestational 68 mg/dL (76-95)
[2022-08-24 13:19] LABS: Glucose 1 Hour Gest 185 mg/dL (76-180)
[2022-08-24 13:50] LABS: Glucose Tol Interp,Gestational INTERPRETATION
[2022-08-24 15:51] LABS: Glucose 2 Hour Gest 179 mg/dL (76-155)
[2022-08-24 15:57] LABS: Glucose 3 Hour Gest 137 mg/dL (76-140)
== END ==
PROVIDERS: PCP Family Medicine; Referring Provider Obstetrics & Gynecology; Visit Provider Obstetrics & Gynecology
DX: O99.810 Abnormal glucose complicating pregnancy (principal)
CPT/HCPCS: 36415; 82951; 82952

== ENCOUNTER → 2022-09-01 09:51 | Outpatient (CLI) | payer OTHER, SELFPAY ==
--- NOTE | 2022-09-01 16:30 | DIAB.GDA ---
Addendum entered by Chelsy Ambrose 09/08/22 10:21: Zakiya sent BG results. Most FBG in goal, one elevation of 96. Otherwise, all FBG between 77-85mg/dL. Most 1 hr pc readings in goal. SOme even below 100 indicating some room for more nutrition potentially. will follow-up in one week in person. Original Note: Initial Gestational Diabetes Assessment Name: Zakiya Galindo Date: 09/01/22 Time: 10 Dx: Gestational Diabetes Provider: Mirza CLAUDIA: 09/05/23 Weeks: 30-31 Zakiya presents for initial GDM visit. Denies any previous h/o GDM or diabetes-related hx. +FH of DM with maternal grandmother. Currently takin 500mg Metformin BID. Just received correct meter for SMBG. Tends to lean toward a lower carb diet naturally. May be under MULTIPLEX OPERATOR for CHO intake during of 175g per day. Has an 18 y/o son at home. Feels she came into this with some weight from previous . Unclear on prepreg weight. Prefers not to see weight. She is having a boy! Diet Recall: 8a: coffee with 1 TBS creamer, yogurt with granola and berries OR avocado taost OR eggs with cheese and veggie 930a: carrots, tomatoes, 1/2c hummus 11a: leftovers OR chicken and cheese sandwich OR salad 2p: half of 930a snack or apple or banana 5p: handful cheerios 630p: protein bar OR low carb pasta with chx and broccoli OR protein with veggies Beverages: water 16oz x 2, coffee x 1c Anthropometrics: Ht: 61 Wt: 143# 08/18/22 OB visit Prepregnancy wt: unknown Physical Activity: Walks 2-3x with son for 20 min. Swims inconsistently when she has time. Self-Monitoring Blood Glucose: Received incorrect meter. Checked a few BG: FBG and some time after dinner 1-3 hours pc. Has new meter. Needed info on SMBG timing and goals. Date Pre Post Pre Post Pre Post notes 08/27 85 149 1hr 119 pre or post? in evening 08/28 75 99 pre or post afternoon? 08/30 81 2 hr 123 2 hr 09/01 132 Diabetes Medications: 500mg Metformin BID Pertinent Labs: OGTT: 68L, 185H, 179H, 137 Nutrition Rx: Carbohydrates: Daily: 175g Meal: 45-g lunch and dinner; 30g breakfast Snack: 15-30g fluids: 1.9-2.25L per day Nutrition Diagnosis: Altered nutrition related lab value r/t GDM dx aeb recent OGTT Inadequate CHO intake r/t low carb diet for aeb diet recall Physical inactivity r/t stage of change preparation aeb pt report Inadequate fluid intake r/t nutrition knowledge deficit aeb diet recall of 16-30oz fluids daily Intervention: This participant was very receptive. Provided appropriate educational handouts. Discussed the following topics: GDM pathophysiology and impact of hyperglycemia on mom and baby Risk for T2DM for mom and baby in the future Ways to reduce risk T2DM Plate Method, meal timing, carb counting, pairing macronutrients and spreading out CHO for better BG management Blood glucose goals (FBG: <95 and 1 hour <140 mg/dL); importance of checking 4x per day (FBG and pc) Impact of macronutrients on blood glucose Recommended servings for carbohydrates at meals and snacks Brainstormed appropriate meal plan based on her food preferences Role of physical activity and following provider guidelines for safety Goals: Measure coffee creamer 30min activity per day Pair carbs and protein Aim for 2L fluids per day Follow-up: SHANNEN KAY follow-up in one week via phone check and 2 weeks 1:1 follow-up Chelsy mAbrose RDN, ELIZA Certified Diabetes Care and Green Marketer T: [phone] F: [phone] [email or web address] Thank you for this referral
== END ==
PROVIDERS: PCP Family Medicine; Referring Provider Obstetrics & Gynecology; Visit Provider Obstetrics & Gynecology
DX: O24.415 Gestational diabetes mellitus in pregnancy, controlled by oral hypoglycemic drugs (principal); Z3A.30 30 weeks gestation of pregnancy; Z71.3 Dietary counseling and surveillance
CPT/HCPCS: 97802

== ENCOUNTER → 2022-09-16 13:52 | Outpatient (CLI) | payer OTHER, SELFPAY ==
--- NOTE | 2022-09-16 14:46 | DIAB.GDFU ---
Follow-up Gestational Diabetes Assessment Name: Zakiya Galindo Date: 09/16/22 Time: 2-230p Dx: Gestational Diabetes Provider: Mirza CLAUDIA: 09/05/23 Weeks: 32-33 Zakiya presents for follow-up GDM visit. States she has been working on pairing carbs and protein, checking BG, and getting enough water. Current water intake reported 60oz. States she has always had a difficult time keeping up with water intake. States she accidentally saw her weight at her last OB visit, which troubled her. Though she seems to be in a healthy weight range with only 20# gain since first trimester per EMR, she seems bothered by coming into this at a higher weight and bothered by the fact that this is the highest her weight has ever been. States her mother and are very supportive and she realizes she should give herself eliseo on weight during . Diet recall indicates about 150-165g CHO per day. 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 She feels satisfied with her current diet and satiety. Sometimes skips carb at 5p snack. States she does not plan on having subsequent pregnancies after this one. Anthropometrics: Ht: 61 Wt: 144# 09/14/22 OB visit 143# 08/18/22 OB visit Prepregnancy wt: unknown Physical Activity: States physical activity has been a challenge with work and family schedules. States her always offers her time to workout in the evening, but she often declines. She is open to taking him up on this offer more often. Self-Monitoring Blood Glucose: All FBG in goal. Some low pc readings due to low carb intake, ie egg bites. One elevated pc lunch reading from sandwich with crackers. Overall BG seems to be well managed. Date Pre Post Pre Post Pre Post HS 09/10 80 80 09/11 92 113 09/12 81 108 116 104 09/13 84 126 108 119 09/14 72 69 09/15 78 91 149 123 09/16 86 Diabetes Medications: 500mg Metformin BID Pertinent Labs: OGTT: 68L, 185H, 179H, 137 Nutrition Rx: Carbohydrates: Daily: 175g Meal: 45-g lunch and dinner; 30g breakfast Snack: 15-30g fluids: 1.9-2.25L per day Nutrition Diagnosis: Altered nutrition related lab value r/t GDM dx aeb recent OGTT Inadequate CHO intake r/t low carb diet for aeb diet recall - improved Physical inactivity r/t stage of change preparation aeb pt report- in progress Inadequate fluid intake r/t nutrition knowledge deficit aeb diet recall of 16-30oz fluids daily - improved Intervention: This participant was very receptive. Provided appropriate educational handouts. Discussed the following topics: Recent blood sugar results and impact of food Review of macronutrient recommendations during Healthy mindset about weight. Benefits to healthy weight gain during and for . Realistic timeframe for weight loss . BG goals of 1 hour pc 110-140mg/dL Goals: Measure coffee creamer- d/c no longer having creamer 30min activity per day- not met Pair carbs and protein- met Aim for 2L fluids per day- met 15 mins of activity per day- new At 5p snack have carb and pro- new Follow-up: SHANNEN KAY follow-up in 2 weeks Chelsy Ambrose RDN, [facility] Certified Diabetes Care and Graphic Art Technician T: [phone] F: [phone] [email or web address] Thank you for this referral
== END ==
PROVIDERS: Referring Provider Obstetrics & Gynecology; Visit Provider Obstetrics & Gynecology
DX: O24.415 Gestational diabetes mellitus in pregnancy, controlled by oral hypoglycemic drugs (principal); Z3A.32 32 weeks gestation of pregnancy; Z71.3 Dietary counseling and surveillance
CPT/HCPCS: 97803

== ENCOUNTER → 2022-09-29 08:46 | Outpatient (CLI) | payer OTHER, SELFPAY ==
--- NOTE | 2022-09-29 09:37 | DIAB.GDFU ---
Follow-up Gestational Diabetes Assessment Name: Zakiya Galindo Date: 09/29/22 Time: 345-311g Dx: Gestational Diabetes Provider: Mirza CLAUDIA: 09/05/23 Weeks: 34-35 Zakiya presents today for follow-up. States she has been incorporating a paired snack at 5p as discussed, usually pretzels and hummus. States she has been feeling some fatigue. Also reports some missed SMBG, did not bring her log book today. Has questions regarding what to do about SMBG and risk for DM. Anthropometrics: Ht: 61 Wt: 145# yesterday OB visit Prepregnancy wt: unknown Physical Activity: has been incorporating 15 min of activity per day, which she feels has given her some energy. Self-Monitoring Blood Glucose: Reports all FBG <95 mg/dL with most 78-85 mg/dl. All 1hr pc readings in the 120s per report. States she has fallen of checking but plans to get back on track. Diabetes Medications: 500mg Metformin BID Pertinent Labs: OGTT: 68L, 185H, 179H, 137 Nutrition Rx: Carbohydrates: Daily: 175g Meal: 45-g lunch and dinner; 30g breakfast Snack: 15-30g fluids: 1.9-2.25L per day Nutrition Diagnosis: Altered nutrition related lab value r/t GDM dx aeb recent OGTT Physical inactivity r/t stage of change preparation aeb pt report- improved Self monitoring deficit r/t forgetting to check BG aeb pt report- new Intervention: This participant was very receptive. Provided appropriate educational handouts. Discussed the following topics: Recent blood sugar results and strategies for picking up checking again (aim for at least 2-3 readings per day min) Benefits, resources, and nutrition for recommendations for nutrition and physical activity recommendations for T2DM risk reduction OGTT at 6-12 weeks Option for checking blood sugars twice per week (goal: fasting <100 mg/dL and 2 hour pc <140 mg/dL) until 6 week check-up HgA1c q 1-3 years. Goals: 15 mins of activity per day- met At 5p snack have carb and pro- met Check BG daily, at least 2-3x per day- new Get OGTT - new Follow-up: SHANNEN KAY follow-up prn. Encouraged her to call or message with any follow-up needs prn. She agreed. Chelsy Ambrose RDN, [facility] Certified Diabetes Care and Elementary Art Teacher T: [phone] F: [phone] [email or web address] Thank you for this referral
== END ==
PROVIDERS: Referring Provider Obstetrics & Gynecology; Visit Provider Obstetrics & Gynecology
DX: O24.415 Gestational diabetes mellitus in pregnancy, controlled by oral hypoglycemic drugs (principal); Z3A.34 34 weeks gestation of pregnancy; Z71.3 Dietary counseling and surveillance
CPT/HCPCS: 97803

== ENCOUNTER 2022-10-01 09:50 | Outpatient (CLI) | payer OTHER, SELFPAY ==
--- NOTE | 2022-10-01 10:40 | PM.OBTRLD ---
Visit Information Visit Information Date of evaluation: 10/01/22 Primary OB Provider: Jaciel Blue Reason for Evaluation: Yes non-stress test Comments/Additional reasons for admission: AMA and GDM A2 [facility] Medical History (Updated 09/28/22 @ 16:41 by Jaciel Blue MD) Abnormal Pap smear of cervix (~2013) AMA (advanced maternal age) primigravida 35+ Anxiety and depression (~2003) Elevated amylase and lipase intolerance to labor, delivered, current hospitalization Laceration of skin of chin Migraine (~2008) Surgical History (Updated 04/23/22 @ 21:47 by Filomena Park MD) Previous section (~06/2019) [place] teeth extracted (~2000) Family History (Updated 03/29/22 @ 09:19 by Bella Sweeney RN) Mother Breast cancer Ovarian cyst Father Hyperlipidemia Skin cancer Hypertension Grandmother Old age Grandfather Cancer Heart abnormality Grandmother Natural with unknown cause Grandfather Stroke Cancer Family/Other Acute alcoholic intoxication Family history of drug addiction Brother No problems noted. 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 travel history: recent seatbelt use: always helmet use: Yes water heater temp set < 120 deg: No (Will check and adjust if needed ) working smoke detector in home: Yes fire extinguisher in home: Yes carbon monox detector in home: Yes firearms in home: No do you feel safe at home: Yes Smoking Status: Never smoker second hand exposure: No alcohol intake: former substance use type: does not use during the past year weight has: increased > 10 lbs well-balanced diet: daily or most days daily servings fruits/ve-4 caffeine: Yes (Tea; aware of 200 mg limit) Type(s) of exercise: walking Evaluation Evaluation Baseline heart rate: 135 Variability: Moderate (11-25) monitor accelerations: Present Monitor Decelerations: Absent Comments: Bedside US ZHANG 9.7 cm Diagnosis, Plan/Disposition Final Diagnosis (1) : Status: Acute (2) Gestational diabetes mellitus: Status: Acute (3) AMA (advanced maternal age) multigravida 35+: Status: Acute (4) Hx of section complicating : Status: Acute Plan/Disposition Plan: Continue weekly NST's OB Disposition: home
== END 2022-10-01 10:40 | disposition home or self-care (01) ==
LOC: LABOR 09:55 → OB 10-07 12:27
PROVIDERS: Referring Provider Obstetrics & Gynecology; Visit Provider Obstetrics & Gynecology
DX: O24.415 Gestational diabetes mellitus in pregnancy, controlled by oral hypoglycemic drugs (principal); O09.523 Supervision of elderly multigravida, third trimester; O34.219 Maternal care for unspecified type scar from previous cesarean delivery; Z3A.35 35 weeks gestation of pregnancy
CPT/HCPCS: 59025; 76815; G0378; G0379

== ENCOUNTER 2022-10-02 09:09 | Emergency (ER) | payer OTHER, SELFPAY ==
[2022-10-02 09:49] VITALS: BP 103/58; PULSE 91; RESP 14; TEMP 36.8; O2SAT 96; BMI 27.3
--- NOTE | 2022-10-02 10:03 | ED.SKABFB ---
HPI - Skin/Abscess/Foreign Bdy General Chief complaint: Skin/Abscess/Foreign Body Stated complaint: rash on belly/ 35 weeks Time Seen by Provider: 10/02/22 09:57 Source: patient Mode of arrival: Ambulatory Limitations: no limitations History of Present Illness HPI narrative: 36-year-old female nonsmoker with history of diabetes is a at [address] Blue, she presents with an intensely itchy rash on her abdomen that started last night in the right upper quadrant and now has spread across her abdomen but nor else. She denies any pain or fever. She denies runny nose, sore throat or cough. She has no chest pain or shortness of breath. She denies swelling of her tongue, lips, throat or face. She denies any difficulty swallowing and, as stated denies any trouble breathing. She is had no new medications, lotions or soaps and states she is had no vaginal bleeding or discharge Related Data Home Medications Medication Instructions Recorded Confirmed prenat.vits,vijay,[id number] 1 tab PO DAILY 12/17/20 09/28/22 Previous Rx's Medication Instructions Recorded Double Electric breast Pump and #1 ea 04/24/21 Supplies ondansetron 4 mg disintegrating 4 mg PO Q6H PRN nausea and 03/22/22 tablet vomiting #20 tabs metformin 500 mg tablet 500 mg PO BIDWMEAL #60 tabs 08/24/22 blood sugar diagnostic (Blood #50 ea 08/25/22 Glucose Test strips) blood-glucose meter #1 ea 08/25/22 lancets #100 ea 08/25/22 triamcinolone acetonide 0.025 % 1 applic topical BID 7 days #80 10/02/22 topical cream grams Allergies Allergy/AdvReac Type Severity Reaction Status Date / Time No Known Allergies Allergy Verified 10/02/22 09:49 Review of Systems Review of Systems Narrative: GENERAL: Denies chills, fatigue, malaise, fever, sweats. HEENT: Denies sinus pain, ear pain, sore throat, difficulty swallowing, dizziness. RESPIRATORY: Denies dyspnea, cough, wheezing, hemoptysis, sputum. CARDIOVASCULAR: Denies chest pain, palpitations, orthopnea, edema, GASTROINTESTINAL: Denies nausea, vomiting, abdominal pain, diarrhea, constipation, melena. : Denies dysuria, frequency, incontinence, hematuria, urinary retention. MUSCULOSKELETAL: denies weakness, joint pain, or bony pain SKIN: See HPI NEUROLOGIC: Denies weakness, headache, numbness, change in speech, confusion, seizures, incoordination. PSYCHIATRIC: No concerning psychosocial issues. 12 point review of systems is negative except for those stated above Patient History Medical History Abnormal Pap smear of cervix (~2013) AMA (advanced maternal age) primigravida 35+ Anxiety and depression (~2003) Elevated amylase and lipase intolerance to labor, delivered, current hospitalization Laceration of skin of chin Migraine (~2008) Surgical History Previous section (~06/2019) [place] teeth extracted (~2000) Family History Mother Breast cancer Ovarian cyst Father Hyperlipidemia Skin cancer Hypertension Grandmother Old age Grandfather Cancer Heart abnormality Grandmother Natural with unknown cause Grandfather Stroke Cancer Family/Other Acute alcoholic intoxication Family history of drug addiction Brother No problems noted. 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 travel history: recent seatbelt use: always helmet use: Yes water heater temp set < 120 deg: No (Will check and adjust if needed ) working smoke detector in home: Yes fire extinguisher in home: Yes carbon monox detector in home: Yes firearms in home: No do you feel safe at home: Yes Smoking Status: Never smoker second hand exposure: No alcohol intake: former substance use type: does not use during the past year weight has: increased > 10 lbs well-balanced diet: daily or most days daily servings fruits/ve-4 caffeine: Yes (Tea; aware of 200 mg limit) Type(s) of exercise: walking Smoking Status: Never smoker alcohol intake frequency: other Substance Use Type: does not use Exam Narrative Exam Narrative: GENERAL: [36] year old patient appears stated age. Well-developed patient, in mild distress. HEAD: Atraumatic. Normocephalic. EYES: Pupils equal round and reactive. Extraocular motions intact. No scleral icterus. No injection or drainage. ENT: No face, tongue, lip or throat swelling Nose without bleeding, purulent drainage. Throat without erythema, tonsillar hypertrophy or exudate. Airway patent. NECK: Trachea midline. Non tender CARDIOVASCULAR: Regular rate and rhythm without murmurs, gallops, or rubs. RESPIRATORY: Clear to auscultation. Breath sounds equal bilaterally. No wheezes, rales, or rhonchi. GASTROINTESTINAL: Gravid above umbilicus, no tenderness EXTREMITIES: No edema or joint tenderness. BACK: Nontender without deformity or crepitance. No flank tenderness. NEURO: AOx3. SKIN: Fine maculopapular rash on abdomen, no hives, bulla or petechiae Initial Vital Signs Initial Vital Signs: Vital Signs Temperature 98.2 F 10/02/22 09:49 Pulse Rate 91 H 10/02/22 09:49 Respiratory Rate 14 10/02/22 09:49 Blood Pressure 103/58 L 10/02/22 09:49 Pulse Oximetry 96 10/02/22 09:49 Oxygen Delivery Method 10/02/22 09:49 Course Orders Ordered: Discontinued Medications Famotidine (Famotidine 20 Mg Tablet) 20 mg PO NOW ONE Stop: 10/02/22 10:08 Last Admin: 10/02/22 10:25 Dose: 20 mg Documented By: TRENTON Loratadine (Loratadine 10 Mg Tablet) 10 mg PO NOW ONE Stop: 10/02/22 10:07 Last Admin: 10/02/22 10:25 Dose: 10 mg Documented By: TRENTON Vital Signs Vital signs: Vital Signs - 8 hr 10/02/22 09:49 Temperature 98.2 F Pulse Rate 91 H Respiratory Rate 14 Blood Pressure 103/58 L Pulse Oximetry 96 Oxygen Delivery Method Room Air MDM - Skin/Abscess/Foreign Bdy MDM Narrative Medical decision making narrative: 36-year-old female diabetic at 35 weeks with pruritic rash in the absence of other symptoms Multiple etiologies for patient's symptoms considered including, but not limited to: [Atopic rash of , polymorphic rash of , anaphylaxis versus other] Prior Charts reviewed: Including multiple recent OB notes from Dr. Blue Patient's symptoms improved over duration of stay with above-stated therapies. No evidence of tongue, lip or throat swelling, no difficulty swallowing or breathing. No systemic complaints Findings and discharge diagnosis discussed with patient/family followed by verbalization of understanding Return precautions discussed with patient/family whom verbalize understanding of diagnosis and plan Discharge Plan Departure Patient Disposition: Home Clinical Impression: Rash Activity Restrictions/Additional Instructions: *You have been diagnosed with [atopic rash of . As we discussed your history and physical exam are very reassuring and there is no indication of any significant or life-threatening cause of this rash] *What to do: *Please continue to take your regular medications as directed. [ x] New medication prescriptions sent to your pharmacy: [[facility] in [place] ] [ ] New medication written as a paper prescription [ ] No new medications given *Please follow up with your primary OB provider in 2-3 days, call for an appointment. Let them know you were seen in the Emergency Department and that we ask that you be seen in follow up. We will electronically transmit a record of today's note if your PCP is in our system * as we discussed I would also recommend the use of [id number] antihistamines such as Zyrtec or Claritin as well as Pepcid to help with the itching and redness. These are safe in and available [id number] *If you do not have a primary care provider please contact the [facility] Resource line at [phone]. They will ask some questions about your medical history and help get you set up with a doctor in the community. *Return to Emergency Department if you should have any new, worsening or concerning symptoms Prescriptions: New triamcinolone acetonide 0.025 % cream 1 applic topical BID 7 Days Qty: 80 0RF No Action (DME) Double Electric breast Pump and Supplies See Rx Instructions .ROUTE .MEDSUPPLY Qty: 1 0RF Rx Instructions: Use electric breast pump and supplies as directed for 99 months. CLAUDIA 07/18/21. ondansetron 4 mg tablet,disintegrating 4 mg PO Q6H PRN (Reason: nausea and vomiting) Qty: 20 2RF metformin 500 mg tablet 500 mg PO BIDWMEAL Qty: 60 6RF (DME) blood-glucose meter Misc See Rx Instructions .ROUTE .MEDSUPPLY Qty: 1 0RF Rx Instructions: Use to check blood sugar 4 times daily as directed and record on log sheet (DME) Blood Glucose Test Strip See Rx Instructions .Route Qty: 50 3RF Rx Instructions: Use as directed to check blood sugar 4 times daily (DME) lancets Misc See Rx Instructions .Route Qty: 100 1RF Rx Instructions: Use as directed to test blood glucose 4 times daily prenat.vits,vijay,[id number] Tablet 1 tab PO DAILY Referrals: Provider,Paulina WATSON [Primary Care Provider] -
[2022-10-02] MEDS: LORATADINE 10 MG TABLET PO (10:25)
[2022-10-02] MEDS: FAMOTIDINE 20 MG TABLET PO (10:25)
[2022-10-02 10:37] VITALS: BP 115/60; PULSE 90; RESP 16
== END 2022-10-02 10:39 | disposition home or self-care (01) ==
PROVIDERS: Emergency Provider Emergency Medicine
DX: R21 Rash and other nonspecific skin eruption (principal); Z3A.35 35 weeks gestation of pregnancy
CPT/HCPCS: 99282; 99283; A9270

== ENCOUNTER 2022-10-11 08:47 | Outpatient (CLI) | payer OTHER, SELFPAY ==
--- NOTE | 2022-10-11 12:24 | PM.OBTRLD ---
Visit Information Visit Information Date of evaluation: 10/11/22 Primary OB Provider: Jaciel Blue On-call OB Provider: Alpa Rodriguez Comments/Additional reasons for admission: 36YO @ 36 3/7wks here for scheduled NST for GDMA1. No other concerns. Vital Signs Vital Signs: BP 109/57mmHg, HR 81, RR 16, T 97.0F Temporal PFSH Medical History Abnormal Pap smear of cervix (~2013) AMA (advanced maternal age) primigravida 35+ Anxiety and depression (~2003) Elevated amylase and lipase intolerance to labor, delivered, current hospitalization Laceration of skin of chin Migraine (~2008) Surgical History Previous section (~06/2019) [place] teeth extracted (~2000) Family History Mother Breast cancer Ovarian cyst Father Hyperlipidemia Skin cancer Hypertension Grandmother Old age Grandfather Cancer Heart abnormality Grandmother Natural with unknown cause Grandfather Stroke Cancer Family/Other Acute alcoholic intoxication Family history of drug addiction Brother No problems noted. 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 travel history: recent seatbelt use: always helmet use: Yes water heater temp set < 120 deg: No (Will check and adjust if needed ) working smoke detector in home: Yes fire extinguisher in home: Yes carbon monox detector in home: Yes firearms in home: No do you feel safe at home: Yes Smoking Status: Never smoker second hand exposure: No alcohol intake: former substance use type: does not use during the past year weight has: increased > 10 lbs well-balanced diet: daily or most days daily servings fruits/ve-4 caffeine: Yes (Tea; aware of 200 mg limit) Type(s) of exercise: walking Review of Systems Review of Systems ROS: Yes All systems reviewed with the patient and are negative except as otherwise documented Exam Vital Signs (past 8 hours): see above Evaluation Evaluation Baseline heart rate: 125 Variability: Moderate (11-25) monitor accelerations: Present Monitor Decelerations: Absent Contraction Frequency (minutes): 0 Category of Tracing: Reactive Comments: CE deferred Diagnosis, Plan/Disposition Final Diagnosis (1) Gestational diabetes mellitus treated with oral hypoglycemic therapy: Status: Acute Plan/Disposition Plan: Reassurance of reactive NST given. RTC as previously scheduled. Continue bi-weekly testing. OB Disposition: home
== END 2022-10-11 09:25 | disposition home or self-care (01) ==
LOC: OB 10-13 09:09
PROVIDERS: Referring Provider Obstetrics & Gynecology; Visit Provider Obstetrics & Gynecology
DX: O24.415 Gestational diabetes mellitus in pregnancy, controlled by oral hypoglycemic drugs (principal); Z3A.36 36 weeks gestation of pregnancy
CPT/HCPCS: 59025; G0378; G0379

== ENCOUNTER → 2022-10-13 08:30 | Outpatient (CLI) | payer OTHER, SELFPAY ==
[2022-10-14 12:38] LABS: Strep Grp B PCR NEG for Grp B Strep
== END ==
PROVIDERS: Visit Provider Obstetrics & Gynecology
DX: Z34.83 Encounter for supervision of other normal pregnancy, third trimester (principal); Z3A.36 36 weeks gestation of pregnancy
CPT/HCPCS: 87653

== ENCOUNTER 2022-10-13 09:12 | Outpatient (CLI) | payer OTHER, SELFPAY | END 2022-10-13 09:48 | disposition home or self-care (01) | LOC: LABOR 09:47 → OB 10-18 15:45 | PROVIDERS: Referring Provider Obstetrics & Gynecology; Visit Provider Obstetrics & Gynecology | DX: O24.415 Gestational diabetes mellitus in pregnancy, controlled by oral hypoglycemic drugs (principal); O09.523 Supervision of elderly multigravida, third trimester; Z3A.36 36 weeks gestation of pregnancy; Z36.4 Encounter for antenatal screening for fetal growth retardation | CPT/HCPCS: 59025; 76815; 76819; 87653; G0378; G0379 ==

== ENCOUNTER → 2022-10-13 09:51 | Outpatient (CLI) | payer OTHER, SELFPAY ==
--- NOTE | 2022-10-13 09:52 | DI.US.S_ITS ---
PROCEDURE: US OB LIMITED INDICATIONS: BIOPHYSICAL AND GROWTH - SMALL FOR GESTATIONAL AGE OUTSIDE/PRIOR DATING DATA: Last menstrual period (LMP): January 29, 2022. LMP-based estimated date of delivery (CLAUDIA): November 05, 2022. First dating scan (date and location): March 24, 2022, [facility]. Estimated date of delivery (CLAUDIA) from first dating scan: November 01, 2022. TECHNIQUE: Real-time scanning was performed of the fetus, with image documentation and biometric measurements. Biophysical profile was also obtained. Endovaginal scanning: Not performed COMPARISON: None. FINDINGS: General: A single living intrauterine gestation is present. Placenta: Placental position is posterior , without previa. Amniotic fluid index: 8.1 cm, normal range is 5-24 cm. Single deepest vertical pocket is 4.1 cm. heart rate: 144 beats per minute. Maternal cervical canal: Not visualized biometrics: Biparietal diameter: 8.8 cm, 35 weeks, 4 days Head circumference: 32.7 cm, 37 weeks, 1 day Abdominal circumference: 32.1 cm, 36 weeks, 0 days Femur length: 7.0 cm, 36 weeks, 0 days Clinically estimated gestational age: 37 weeks, 2 days Composite gestational age from present scan: 36 weeks, 1 day Estimated weight and percentile: 2838 g, 26% Biophysical profile: Tone: 2 points. Movement: 2 points. Respiration: 2 points. Largest pocket of fluid: 2 points. IMPRESSION: 1. Single live intrauterine gestation with a composite gestational age of 36 weeks, 1 day which is concordant with dates by initial scan. 2. 05/24 biophysical profile. We strive to produce accurate, complete, and clear reports of imaging services. To assist us in improving patient care, this report was composed using standard report templates and voice recognition software. Therefore, it may contain abnormal punctuation, insertions and/or omissions. Occasional wrong-word or sound-alike substitutions may occur. Though we review the report and make efforts to correct it, we do recommend that the report be read carefully in proper context to recognize any text inaccuracies. Dictated by: Angeline Ibrahim M.D. on 10/13/2022 at 11:32 Approved by: Angeline Ibrahim M.D. on 10/13/2022 at 11:34
== END ==
PROVIDERS: Referring Provider Obstetrics & Gynecology; Visit Provider Obstetrics & Gynecology
DX: Z36.4 Encounter for antenatal screening for fetal growth retardation (principal); Z3A.36 36 weeks gestation of pregnancy
CPT/HCPCS: 76815; 76819

== ENCOUNTER 2022-10-19 13:54 | Outpatient (CLI) | payer OTHER, SELFPAY ==
--- NOTE | 2022-10-19 14:58 | PM.OBTRLD ---
Visit Information Visit Information Date of evaluation: 10/19/22 Primary OB Provider: Jaciel Blue Reason for Evaluation: Yes non-stress test Comments/Additional reasons for admission: GDMA2, 37+4 wks EGA PFSH Medical History Abnormal Pap smear of cervix (~2013) AMA (advanced maternal age) primigravida 35+ Anxiety and depression (~2003) Elevated amylase and lipase intolerance to labor, delivered, current hospitalization Laceration of skin of chin Migraine (~2008) Surgical History Previous section (~06/2019) [place] teeth extracted (~2000) Family History Mother Breast cancer Ovarian cyst Father Hyperlipidemia Skin cancer Hypertension Grandmother Old age Grandfather Cancer Heart abnormality Grandmother Natural with unknown cause Grandfather Stroke Cancer Family/Other Acute alcoholic intoxication Family history of drug addiction Brother No problems noted. 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: No travel history: recent seatbelt use: always helmet use: Yes water heater temp set < 120 deg: No (Will check and adjust if needed ) working smoke detector in home: Yes fire extinguisher in home: Yes carbon monox detector in home: Yes firearms in home: No do you feel safe at home: Yes Smoking Status: Never smoker second hand exposure: No alcohol intake: former substance use type: does not use during the past year weight has: increased > 10 lbs well-balanced diet: daily or most days daily servings fruits/ve-4 caffeine: Yes (Tea; aware of 200 mg limit) Type(s) of exercise: walking Evaluation Evaluation Baseline heart rate: 125 Variability: Moderate (11-25) monitor accelerations: Present Monitor Decelerations: Absent and Variable (Isolated mild variable) Category of Tracing: Reactive Diagnosis, Plan/Disposition Plan/Disposition Plan: Continue PNC and weekly/twice weekly NST's OB Disposition: home
== END 2022-10-19 14:33 | disposition home or self-care (01) ==
LOC: OB 10-20 12:52
PROVIDERS: Referring Provider Obstetrics & Gynecology; Visit Provider Obstetrics & Gynecology
DX: O24.415 Gestational diabetes mellitus in pregnancy, controlled by oral hypoglycemic drugs (principal); O09.523 Supervision of elderly multigravida, third trimester; Z3A.37 37 weeks gestation of pregnancy
CPT/HCPCS: 59025; G0378; G0379

== ENCOUNTER 2022-10-21 11:05 | Outpatient (CLI) | payer OTHER, SELFPAY | END 2022-10-21 12:08 | disposition home or self-care (01) | LOC: OB 10-23 15:26 | PROVIDERS: Referring Provider Obstetrics & Gynecology; Visit Provider Obstetrics & Gynecology | DX: O24.419 Gestational diabetes mellitus in pregnancy, unspecified control (principal); O09.523 Supervision of elderly multigravida, third trimester; Z3A.37 37 weeks gestation of pregnancy | CPT/HCPCS: 59025; G0378; G0379 ==

== ENCOUNTER 2022-10-23 06:24 | Inpatient (IN) | payer OTHER, SELFPAY ==
--- NOTE | 2022-10-23 07:22 | PM.OBHP.IH.1 ---
OB HPI Date/Time Date of admission: 10/23/22 Date Patient Seen: 10/23/22 Time Patient Seen: 07:10 History of Present Condition Chief complaint: CLAUDIA Calculator Estimated Delivery Date Method Current WG Current Estimate 11/05/22 LMP (Certain) 38w 1d Other Estimates 11/01/22 Ultrasound #1 38w 5d : 2 Para: 1 care: good care Dating criteria OB: based on LMP only Ultrasounds: normal mid trimester US Obstetrical complications: gestational diabetes (on metformin) Medical complications OB: none Indications Operative indications ( section): previous uterine surgery Preadmission Labs Last OB Lab Results: Blood Type A Negative 03/24/22 09:50 Antibody Screen Negative 03/24/22 09:50 Hematocrit 33.5 % (36-46) L 08/18/22 11:18 Hemoglobin 11.4 g/dL (12.0-16.0) L 08/18/22 11:18 Hepatitis B Surface Antigen Negative s/c (NEGATIVE) 03/24/22 09:50 Hepatitis C Antibody Negative s/c (NEGATIVE) 03/24/22 09:50 Rubella Antibody 17.7 IU/mL (>15) 03/24/22 09:50 Varicella-Zoster IgG Antibody 648 index (Immune >165) 03/24/22 09:50 Glucose 1 Hour 161 mg/dL (76-139) H 08/18/22 11:18 Group B Streptococcus (PCR) Neg for grp b strep 10/13/22 08:30 Genetic Screens: Cell-free DNA: Normal Prior (ies) Past Pregnancies Del. Date GA/Weeks Labor Lgth Wt Sex Route Outcome Anesthesia Place Delv Breastfeed Preg Comp Name 07/06/21 38 12 7 lb 6 oz Male live - full term IH 6 [place] Evaluation Evaluation Baseline heart rate: 125 monitor accelerations: Present Contraction Frequency (minutes): 3 Uterine Contraction Intensity: Moderate Category of Tracing: Reactive Status: Category l Dilation (cm): 4 Effacement (%): 90 station: -2 [facility] Medical History Abnormal Pap smear of cervix (~2013) AMA (advanced maternal age) primigravida 35+ Anxiety and depression (~2003) Elevated amylase and lipase intolerance to labor, delivered, current hospitalization Laceration of skin of chin Migraine (~2008) Surgical History Previous section (~06/2019) [place] teeth extracted (~2000) Family History Mother Breast cancer Ovarian cyst Father Hyperlipidemia Skin cancer Hypertension Grandmother Old age Grandfather Cancer Heart abnormality Grandmother Natural with unknown cause Grandfather Stroke Cancer Family/Other Acute alcoholic intoxication Family history of drug addiction Brother No problems noted. 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: No travel history: recent seatbelt use: always helmet use: Yes water heater temp set < 120 deg: No (Will check and adjust if needed ) working smoke detector in home: Yes fire extinguisher in home: Yes carbon monox detector in home: Yes firearms in home: No do you feel safe at home: Yes Smoking Status: Never smoker second hand exposure: No alcohol intake: former substance use type: does not use during the past year weight has: increased > 10 lbs well-balanced diet: daily or most days daily servings fruits/ve-4 caffeine: Yes (Tea; aware of 200 mg limit) Type(s) of exercise: walking Meds Home Medications and Allergies Home Medications Medication Instructions Recorded Confirmed Type prenat.vits,vijay,lav-ainy-hoaci 1 tab PO DAILY 12/17/20 10/21/22 History Double Electric breast Pump and #1 ea 04/24/21 10/21/22 Rx Supplies ondansetron 4 mg disintegrating 4 mg PO Q6H PRN nausea and 03/22/22 10/21/22 Rx tablet vomiting #20 tabs metformin 500 mg tablet 500 mg PO BIDWMEAL #60 tabs 08/24/22 10/21/22 Rx blood sugar diagnostic (Blood #50 ea 08/25/22 10/21/22 Rx Glucose Test strips) blood-glucose meter #1 ea 08/25/22 10/21/22 Rx lancets #100 ea 08/25/22 10/21/22 Rx Allergies Allergy/AdvReac Type Severity Reaction Status Date / Time No Known Allergies Allergy Verified 10/21/22 10:37 Review of Systems Review of Systems ROS: Yes All systems reviewed with the patient and are negative except as otherwise documented OB Exam Vital signs Blood Pressure: 110/77 Pulse Rate: 81 Temperature: 36.2 F HENMT Head: normal to inspection Eyes General: appearance normal, both eyes and all related structures Resp Effort & Inspection: normal respiratory effort Cardio Rate: regular rate Rhythm: regular rhythm Extremities Lower extremity: Yes normal to inspection GI Inspection: normal to inspection Presentation: vertex Estimated Weight (lbs): 7 Assessment and Plan Assessment and Plan Assessment and Plan narrative: 1) Previous / labor at 38 1/7 weeks 2) GDM - on metformin 3) AMA 4) RH negative 5) GBS negative / covid negative Time Spent with Patient Total time spent with greater than 50% in coordination of care (as documented) at patient's floor/unit and/or counseling patient:: 25 - 35 minutes
[2022-10-23 07:25] LABS: COVID19 -Nasal RAPID Negative (Negative)
[2022-10-23 07:32] LABS: Add Manual Diff / Slide Review NO; Basophils Absolute Auto 0 /uL (0-100); Basophils Percent Auto 0.5 % (0-2); Eosinophils Absolute Auto 100 /uL (0-450); Eosinophils Percent Auto 1.7 % (2-4); Hematocrit 38.4 % (36-46); Hemoglobin 13.1 g/dL (12.0-16.0); Lymphocytes Absolute Auto 1400 /uL (1100-4500); Lymphocytes Percent Auto 18.6 % (25-40); Mean Corpuscular HGB Conc 34.1 % (30-36); Mean Corpuscular Hemoglobin 30.5 PG (26-34); Mean Corpuscular Volume 89.5 fL (80-100); Monocytes Absolute Auto 500 /uL (0-900); Monocytes Percent Auto 7.3 % (3-14); Neutrophils Absolute Auto 5300 /uL (1500-7000); Neutrophils Percent Auto 71.9 % (50-75); Platelet Count 209 X10^3/uL (150-400); Red Blood Cell Count 4.29 X10^6/uL (4.0-5.2); Red Cell Distribution Width 13.5 % (11.6-14.8); White Blood Cell Count 7.4 X10^3/uL (4.5-11.0)
[2022-10-23 07:36] VITALS: BP 110/77; PULSE 81; TEMP 2.3; TEMP 36.2
[2022-10-23] MEDS: CITRIC ACID/SODIUM CITRATE 15 ML SOLUTION 30 ML PO (07:54)
[2022-10-23] MEDS: LACTATED RINGERS 1,000 ML 999 ML IV (07:55)
[2022-10-23] MEDS: CEFAZOLIN 2 GM/100 ML PREMIX 100 ML IV (08:10)
[2022-10-23] MEDS: ACETAMINOPHEN IV 1,000 MG/100 ML VIAL 400 MG IV (08:25)
--- NOTE | 2022-10-23 08:45 | SUR.OPER ---
Viable baby boy born at 08, placenta delivered at 08, FHT prior to incision 140, 8/8, cord blood and placenta given to OB RN to take to OB
[2022-10-23 09:14] VITALS: BP 108/61; PULSE 101; RESP 22; TEMP 36.3; O2SAT 98
[2022-10-23 09:15] VITALS: BP 97/60; PULSE 81; RESP 15; TEMP 36.2; O2SAT 98
[2022-10-23 09:20] VITALS: BP 93/56; PULSE 98; RESP 19; TEMP 36.2; O2SAT 98
[2022-10-23 09:25] VITALS: BP 108/71; PULSE 79; RESP 16; TEMP 36.3; O2SAT 98
--- NOTE | 2022-10-23 10:10 | PM.OBCS.1 ---
Operative Date/Time/Diagnoses Date of procedure: 10/23/22 Time of procedure: 08:15 Pre-op diagnosis: previous , term labor Post-op diagnosis: same Procedure & Clinicians Procedure: Repeat Same procedure as scheduled: Yes Indications: previous , term , labor Surgeon: Odessa SwanMotor Equipment Commanding Officer: Jaciel Blue Reason for Document Manager: open abdomen, previous surgery Anesthesia Type: Spinal Operative Notes Findings: 1) normal uterus, tubes, ovaries 2) live born female, apgars 8/8, cephalic presentation 3) normal, intact placenta with 3 VC Closure Type: primary Specimen(s): cord blood Intraoperative meds administered: Acetaminophen and Ketorolac Applied: Catheter Estimated Blood Loss (mL): 1,000 Blood products transfused: none Procedure in detail: Patient presented with regular, painful contractions and cervix . She was consented for a repeat and declined BTL. She was taken to the OR and placed in sitting position. Spinal anesthesia was administer by Dr. Twan Sandoval. Pt was then place supine with a right hip roll. [place] catheter was inserted. SCDs were placed. Ancef was given. Time-out was done. Anesthesia was tested and found to be adequate. An elliptical incision was made around and existing scar / keloid. A small wedge of skin and subq tissue was removed. The incision was continue through the subq tissue and and fascia was scored in the midline. This incision was extended laterally in an upward curving fashion. The fascia was elevated off the rectus muscles by sharp and blunt dissection. The recti were divided. The peritoneum was graspes and entered bluntly. The cavity was then stretched laterally. A bladder flap was created with sharp and blunt dissection and removed from the operative field. The hysterotomy was created with the knife. The cavity was entered with a hemostat and extended with the bandage scissors. The was presenting cephalic and delivered same. Cord was clamped after a one minute delay and cut. The infant was take to the warmer. Cord blood was collected. The uterus was massaged and the placenta was removed. A sweep of the cavity was done with the sponge. The uterus was closed with 0-Chromic in a running interlocking stitch. A second imbricating layer was done with 0-Chromic. An addition figure of 8 was needed to ensure hemostasis. The area was inspected for hemostasis and all blood was removed. the peritoneum was closed with a running stitch of 2-0 Vicryl. The fascia was closed with a running stitch of 0 Vicryl. The subq was irrigated and hemostasis verified. Subcutaneous tissue was reapproximated with several stitches of 3-0 Vicryl. The skin was reapproximated with a running stitch of 4-0 Monocryl. Steri strips were applied and the wound was covered with a sterile dressing. Crede maneuver expressed some blood and clots. The patient was then moved to a post-op bed and taken to PACU. At the close of the operation all sponge, needle and instrument counts were correct. Complications: none [place] Baby 1: Gender: Male Presentation: vertex Placental Delivery Description: Manual Removal Cord Vessel Description: 3 Vessels score (1 min): 8 score (5 min): 8 Post-operative Condition: stable Disposition: PACU Aftercare: routine postop
[2022-10-23 10:20] VITALS: BP 108/71; PULSE 73; RESP 16; TEMP 36.7
[2022-10-23] MEDS: OXYCODONE IR 5 MG TABLET PO ×2 (11:27→19:20)
[2022-10-23] MEDS: ACETAMINOPHEN 325 MG TABLET 650 MG PO ×2 (14:28→20:48)
[2022-10-23] MEDS: KETOROLAC 30 MG/ML VIAL IV ×2 (15:35→21:47)
[2022-10-24] MEDS: ACETAMINOPHEN 325 MG TABLET 650 MG PO ×2 (02:59→10:21)
[2022-10-24] MEDS: KETOROLAC 30 MG/ML VIAL IV (03:52)
[2022-10-24] MEDS: OXYCODONE IR 5 MG TABLET PO ×2 (04:00→10:24)
[2022-10-24 08:31] LABS: Add Manual Diff / Slide Review NO; Basophils Absolute Auto 0 /uL (0-100); Basophils Percent Auto 0.2 % (0-2); Eosinophils Absolute Auto 100 /uL (0-450); Eosinophils Percent Auto 0.5 % (2-4); Hematocrit 32.6 % (36-46); Lymphocytes Absolute Auto 1400 /uL (1100-4500); Lymphocytes Percent Auto 12.6 % (25-40); Mean Corpuscular HGB Conc 33.7 % (30-36); Mean Corpuscular Hemoglobin 30.3 PG (26-34); Mean Corpuscular Volume 89.8 fL (80-100); Monocytes Absolute Auto 600 /uL (0-900); Monocytes Percent Auto 5.1 % (3-14); Neutrophils Absolute Auto 9200 /uL (1500-7000); Neutrophils Percent Auto 81.6 % (50-75); Platelet Count 217 X10^3/uL (150-400); Red Blood Cell Count 3.63 X10^6/uL (4.0-5.2); Red Cell Distribution Width 13.4 % (11.6-14.8); White Blood Cell Count 11.3 X10^3/uL (4.5-11.0)
[2022-10-24] MEDS: DOCUSATE 100 MG CAPSULE PO (10:21)
[2022-10-24] MEDS: PRENATAL VIT,CALC/IRON/FOLIC 1 TABLET 1 TAB PO (10:21)
--- NOTE | 2022-10-24 11:09 | P.DS_ITS ---
Discharge Providers Provider Date of admission: 10/23/22 06:24 Discharge Date: 10/24/22 Primary care physician: Paulina WATSON Provider Consults: 10/23/22 10:20 Consult to Aviation Tactical Readiness Officer Routine Comment: Discharge provider: Odessa Swan MD Summary Hospital Course Date Patient Seen: 10/24/22 Time Patient Seen: 11:09 Diagnoses: s/p repeat Hospital Course: 36 yo P2 presented in active labor with previous CS. Repeat CS done without c omplications. Post op course benign - AF/VSS, LL/FF, dressing intact. +Flatus / no BM. Ambulating and voiding well. Tolerating regular diet. Peripartum Data Infant Delivery Method: Section (repeat) complications: none Discharge Diagnosis (1) delivery, delivered, current hospitalization: Start Date: 10/23/22 Status: Acute Status at Discharge Cognitive/behavioral status at discharge: oriented Functional status at discharge: independent ambulation Overall status at discharge: patient is progressing back to baseline Time Spent with Patient Time attestation: Total time spent providing and/or coordinating discharge services: Time spent: Greater than 30 minutes Specific discharge activities: Nothing in vagina for six weeks. No lifting >10 pounds for six weeks Objective Labs Result Diagrams: 10/24/22 08:21 Labs: Laboratory Results - last 24 hr 10/24/22 08:21 WBC 11.3 H D RBC 3.63 L Hgb 11.0 L Hct 32.6 L MCV 89.8 MCH 30.3 MCHC 33.7 RDW 13.4 Plt Count 217 Neut % (Auto) 81.6 H Lymph % (Auto) 12.6 L [place] % (Auto) 5.1 Eos % (Auto) 0.5 L Baso % (Auto) 0.2 Neut # (Auto) 9200 H Lymph # (Auto) 1400 [place] # (Auto) 600 Eos # (Auto) 100 Baso # (Auto) 0 Exam Vital Signs (past 8 hours): 98.0, 108/71, 73 Oxygen Delivery Method Room Air Narrative Exam Narrative: incision covered with dry dressing Const General: cooperative Other: fundus firm and nontender Discharge Plan Discharge Plan Patient Disposition: Home Provider Discharge Comment: desires early discharge - good support system Discharge orders & Medications Prescriptions: New oxycodone 5 mg Tablet 5 mg PO Q4H PRN (Reason: Pain, Moderate (4-6)) Qty: 20 0RF ibuprofen 600 mg Tablet 600 mg PO Q6HR PRN (Reason: Fever/Mild Pain (1-3)) Qty: 30 0RF Continued prenat.vits,vijay,siv-fhng-bzrlt Tablet 1 tab PO DAILY Discontinued (DME) Double Electric breast Pump and Supplies See Rx Instructions .ROUTE .MEDSUPPLY Qty: 1 0RF Rx Instructions: Use electric breast pump and supplies as directed for 99 months. CLAUDIA 07/18/21. ondansetron 4 mg tablet,disintegrating 4 mg PO Q6H PRN (Reason: nausea and vomiting) Qty: 20 2RF metformin 500 mg tablet 500 mg PO BIDWMEAL Qty: 60 6RF (DME) blood-glucose meter Misc See Rx Instructions .ROUTE .MEDSUPPLY Qty: 1 0RF Rx Instructions: Use to check blood sugar 4 times daily as directed and record on log sheet (DME) Blood Glucose Test Strip See Rx Instructions .Route Qty: 50 3RF Rx Instructions: Use as directed to check blood sugar 4 times daily (DME) lancets Misc See Rx Instructions .Route Qty: 100 1RF Rx Instructions: Use as directed to test blood glucose 4 times daily Follow up/Referrals: ProviderPaulina [Primary Care Provider] - Jaciel Blue MD [Physician] - (Please make an appointment with in one week for dressing removal.) Diet/Activity/Treatments Diet: Diet as Tolerated Activity: Pelvic rest. No heavy lifting. Visit Report/Discharge Packet Instructions: DI for Stand Alone Forms: Patient Portal/API Discharge Data Primary Care Provider: Paulina Reynoso Attending Provider: Odessa Swan
[2022-10-24] MEDS: IBUPROFEN 600 MG TABLET PO (11:41)
== END 2022-10-24 12:41 | disposition home or self-care (01) | DRG 787 ==
PROVIDERS: Admitting Provider Obstetrics & Gynecology; Referring Provider Obstetrics & Gynecology; Visit Provider Obstetrics & Gynecology
PROC: 10D00Z1 Extraction of Products of Conception, Low, Open Approach (ICD-10-PCS; CPT 59514; principal; 2022-10-23 08:00)
DX: O34.211 Maternal care for low transverse scar from previous cesarean delivery (principal); O36.0130 Maternal care for anti-D [Rh] antibodies, third trimester, not applicable or unspecified; Z3A.38 38 weeks gestation of pregnancy; Z37.0 Single live birth; O99.892 Other specified diseases and conditions complicating childbirth; L91.0 Hypertrophic scar; Z20.822 Contact with and (suspected) exposure to COVID-19
CPT/HCPCS: 59050; 59510; 59514; 59515; 85025; 86850; 86870; 86900; 86901; 87635; C9803; G0379; J0131; J0690; J1885; J2250; J2274; J2405; J2590; J3010